=== PATIENT | female | born 1930 | race Caucasian/White ===

== ENCOUNTER → 2017-08-09 | Outpatient (CLI) | payer MEDICARE, OTHER ==
[2017-08-09 13:01] LABS: MEAN CORPUSCULAR HEMOGLOBIN 29.2 pg (27.0-33.0); MEAN CORPUSCULAR HGB CONC 32.4 g/dl (32.0-36.5); MEAN CORPUSCULAR VOLUME 90.2 fl (80.0-96.0); RED CELL DISTRIBUTION WIDTH 13.5 % (11.5-14.5); WHITE BLOOD COUNT 3.6 10^3/uL (4.0-10.0)
[2017-08-09 13:56] LABS: ALBUMIN 3.6 GM/DL (3.2-5.2); ALBUMIN/GLOBULIN RATIO 1.38 (1.00-1.93); ALKALINE PHOSPHATASE 59 U/L (45-117); ALT/SGPT 20 U/L (12-78); ANION GAP 7 MEQ/L (8-16); AST/SGOT 13 U/L (15-37); BILIRUBIN,TOTAL 0.4 MG/DL (0.2-1.0); BLOOD UREA NITROGEN 18 MG/DL (7-18); CALCIUM LEVEL 8.9 MG/DL (8.8-10.2); CARBON DIOXIDE LEVEL 30 MEQ/L (21-32); CHLORIDE LEVEL 105 MEQ/L (98-107); CHOLESTEROL LEVEL 179 MG/DL (<200); CREATININE FOR GFR 0.58 MG/DL (0.55-1.02); FREE T4 1.07 NG/DL (0.76-1.46); GLOMERULAR FILTRATION RATE > 60.0 (>32); GLUCOSE, FASTING 83 MG/DL (83-110); POTASSIUM SERUM 4.1 MEQ/L (3.5-5.1); SODIUM LEVEL 142 MEQ/L (136-145); TOTAL PROTEIN 6.2 GM/DL (6.4-8.2); TRIGLYCERIDES LEVEL 88 MG/DL (<150)
== END ==
LOC: M WUC 08:42
PROVIDERS: ATTEND Family Medicine
DX: M16.12 Unilateral primary osteoarthritis, left hip (principal); E78.2 Mixed hyperlipidemia; E03.9 Hypothyroidism, unspecified

== ENCOUNTER → 2018-01-03 | Outpatient (CLI) | payer MEDICARE, OTHER ==
[2018-01-03 12:11] LABS: HEMATOCRIT 42.5 % (36.0-47.0); HEMOGLOBIN 13.7 g/dl (12.0-16.0); MEAN CORPUSCULAR HEMOGLOBIN 29.1 pg (27.0-33.0); MEAN CORPUSCULAR HGB CONC 32.2 g/dl (32.0-36.5); MEAN CORPUSCULAR VOLUME 90.2 fl (80.0-96.0); PLATELET COUNT, AUTOMATED 173 10^3/uL (150-450); RED BLOOD COUNT 4.71 10^6/uL (4.00-5.40); RED CELL DISTRIBUTION WIDTH 13.2 % (11.5-14.5); WHITE BLOOD COUNT 3.4 10^3/uL (4.0-10.0)
[2018-01-03 12:24] LABS: ALBUMIN 3.6 GM/DL (3.2-5.2); ALBUMIN/GLOBULIN RATIO 1.33 (1.00-1.93); ALKALINE PHOSPHATASE 61 U/L (45-117); ALT/SGPT 17 U/L (12-78); ANION GAP 7 MEQ/L (8-16); AST/SGOT 14 U/L (7-37); BILIRUBIN,TOTAL 0.4 MG/DL (0.2-1.0); BLOOD UREA NITROGEN 13 MG/DL (7-18); CALCIUM LEVEL 8.5 MG/DL (8.8-10.2); CARBON DIOXIDE LEVEL 29 MEQ/L (21-32); CHLORIDE LEVEL 107 MEQ/L (98-107); CHOLESTEROL LEVEL 166 MG/DL (<200); CHOLESTEROL RISK RATIO 2.634 (<5); CREATININE FOR GFR 0.58 MG/DL (0.55-1.30); FREE T4 1.04 NG/DL (0.76-1.46); GLOMERULAR FILTRATION RATE > 60.0 (>32); GLUCOSE, FASTING 88 MG/DL (70-100); HDL CHOLESTEROL 63 MG/DL (>40); LDL CHOLESTEROL 85.2 MG/DL (<100); NON-HDL-C 103 MG/DL; POTASSIUM SERUM 4.1 MEQ/L (3.5-5.1); SODIUM LEVEL 143 MEQ/L (136-145); TOTAL PROTEIN 6.3 GM/DL (6.4-8.2); TRIGLYCERIDES LEVEL 89 MG/DL (<150)
== END ==
LOC: M WUC 08:30
DX: M16.12 Unilateral primary osteoarthritis, left hip (principal); F41.1 Generalized anxiety disorder; E78.2 Mixed hyperlipidemia
CPT/HCPCS: 84443

== ENCOUNTER → 2018-01-11 | Outpatient (CLI) | payer MEDICARE, OTHER | LOC: M WHC 11:25 | DX: Z12.31 Encounter for screening mammogram for malignant neoplasm of breast (principal) | CPT/HCPCS: 77067 ==

== ENCOUNTER → 2018-03-03 | Outpatient (CLI) | payer MEDICARE, OTHER | LOC: M RAD 10:04 | DX: M54.5 Low back pain (principal) | CPT/HCPCS: 72148 ==

== ENCOUNTER → 2018-08-03 | Outpatient (CLI) | payer MEDICARE, OTHER ==
[2018-08-03 08:48] LABS: EOS # 0.2 10^3/uL (0.0-0.50); EOS % 4.1 % (0.0-3.0); HEMATOCRIT 40.9 % (36.0-47.0); HEMOGLOBIN 13.4 g/dl (12.0-15.5); IMMATURE GRANULOCYTE % 0.2 % (0-3.0); LYMPH # 0.7 10^3/uL (1.5-4.5); LYMPH % 17.5 % (24.0-44.0); MEAN CORPUSCULAR HEMOGLOBIN 29.8 pg (27.0-33.0); MEAN CORPUSCULAR HGB CONC 32.8 g/dl (32.0-36.5); MEAN CORPUSCULAR VOLUME 90.9 fl (80.0-96.0); MONO # 0.3 10^3/uL (0.0-0.8); MONO % 8.3 % (0.0-5.0); NEUTROPHILS # 2.8 10^3/uL (1.8-7.7); NEUTROPHILS % 68.9 % (36.0-66.0); PLATELET COUNT, AUTOMATED 197 10^3/uL (150-450); RED CELL DISTRIBUTION WIDTH 13.8 % (11.5-14.5); WHITE BLOOD COUNT 4.1 10^3/uL (4.0-10.0)
[2018-08-03 09:23] LABS: ALBUMIN 3.5 GM/DL (3.2-5.2); ALBUMIN/GLOBULIN RATIO 1.35 (1.00-1.93); ALKALINE PHOSPHATASE 59 U/L (45-117); ALT/SGPT 18 U/L (12-78); ANION GAP 7 MEQ/L (8-16); AST/SGOT 14 U/L (7-37); BILIRUBIN,TOTAL 0.5 MG/DL (0.2-1.0); BLOOD UREA NITROGEN 14 MG/DL (7-18); CALCIUM LEVEL 8.5 MG/DL (8.8-10.2); CARBON DIOXIDE LEVEL 31 MEQ/L (21-32); CHLORIDE LEVEL 107 MEQ/L (98-107); CHOLESTEROL LEVEL 173 MG/DL (<200); CHOLESTEROL RISK RATIO 2.544 (<5); CREATININE FOR GFR 0.61 MG/DL (0.55-1.30); FREE T4 0.89 NG/DL (0.76-1.46); GLOMERULAR FILTRATION RATE > 60.0 (>32); GLUCOSE, FASTING 85 MG/DL (70-100); HDL CHOLESTEROL 68 MG/DL (>40); LDL CHOLESTEROL 91 MG/DL (<100); NON-HDL-C 105 MG/DL; POTASSIUM SERUM 4.3 MEQ/L (3.5-5.1); SODIUM LEVEL 145 MEQ/L (136-145); TOTAL PROTEIN 6.1 GM/DL (6.4-8.2); TRIGLYCERIDES LEVEL 72 MG/DL (<150)
[2018-08-03 11:57] LABS: TOTAL 25(OH) VITAMIN D 48.8 NG/ML (30.0-100.0)
== END ==
LOC: M WUC 08:16
DX: E78.2 Mixed hyperlipidemia (principal); E03.9 Hypothyroidism, unspecified; E55.9 Vitamin D deficiency, unspecified
CPT/HCPCS: 84443

== ENCOUNTER → 2018-09-18 | Outpatient (CLI) | payer MEDICARE, OTHER ==
[2018-09-18 13:03] LABS: THYROID STIMULATING HORMONE 0.865 uIU/ML (0.358-3.740)
[2018-09-18 13:03] LABS: FREE T4 1.25 NG/DL (0.76-1.46)
== END ==
LOC: M WUC 08:30
DX: E03.9 Hypothyroidism, unspecified (principal)
CPT/HCPCS: 84443

== ENCOUNTER 2018-10-17 13:12 | Emergency (ER) | payer MEDICARE, OTHER ==
[2018-10-17] MEDS: ACETAMINOPH W/CODEINE #3 TAB UD PO (14:11)
== END 2018-10-17 14:14 | disposition home or self-care (01) ==
LOC: M ED 13:12
DX: S42.124A Nondisplaced fracture of acromial process, right shoulder, initial encounter for closed fracture (principal); X50.9XXA Other and unspecified overexertion or strenuous movements or postures, initial encounter; Y92.099 Unspecified place in other non-institutional residence as the place of occurrence of the external cause; Y93.E8 Activity, other personal hygiene; Y99.9 Unspecified external cause status; Z87.891 Personal history of nicotine dependence; Z79.899 Other long term (current) drug therapy; Z91.89 Other specified personal risk factors, not elsewhere classified; Z88.2 Allergy status to sulfonamides; Z88.1 Allergy status to other antibiotic agents
CPT/HCPCS: 73030

== ENCOUNTER 2019-02-10 19:11 | Emergency (ER) | payer OTHER, MEDICARE ==
[~2019-02-10] VITALS: Ht 149.9 cm; Wt 52.7 kg
[~2019-02-10 19:11] MED LIST: BONI1TAB; IBAN150T6; IBUPOTC; LEVO88TA3; PARO30TA3; PRAV80TA2; REFR0.5D8; TYLETAB14 PO
[2019-02-10 20:09] LABS: BASO # 0.1 10^3/uL (0.0-0.2); BASO % 0.7 % (0.0-1.0); EOS # 0.2 10^3/uL (0.0-0.50); EOS % 1.8 % (0.0-3.0); HEMATOCRIT 41.5 % (36.0-47.0); HEMOGLOBIN 13.7 g/dl (12.0-15.5); LYMPH # 0.9 10^3/uL (1.5-4.5); LYMPH % 11.3 % (24.0-44.0); MEAN CORPUSCULAR HEMOGLOBIN 28.5 pg (27.0-33.0); MEAN CORPUSCULAR VOLUME 86.5 fl (80.0-96.0); MONO # 0.6 10^3/uL (0.0-0.8); MONO % 7.3 % (0.0-5.0); NEUTROPHILS # 6.3 10^3/uL (1.8-7.7); NEUTROPHILS % 77.3 % (36.0-66.0); PLATELET COUNT, AUTOMATED 242 10^3/uL (150-450); WHITE BLOOD COUNT 8.2 10^3/uL (4.0-10.0)
[2019-02-10] MEDS: MORPHINE 2 MG/ML 1ML SYRINGE (J2270) IV PRN ×2 (20:09→20:37)
[2019-02-10 20:20] LABS: PARTIAL THROMBOPLASTIN TIME 26.4 SECONDS (25.4-37.6); PROTHROMBIN TIME 13.3 SECONDS (12.1-14.4)
[2019-02-10 20:28] LABS: BLOOD UREA NITROGEN 19 MG/DL (7-18); CALCIUM LEVEL 8.7 MG/DL (8.8-10.2); CARBON DIOXIDE LEVEL 25 MEQ/L (21-32); CHLORIDE LEVEL 108 MEQ/L (98-107); CPK CREATINE PHOSPHOKINASE 59 U/L (26-192); CREATININE FOR GFR 0.82 MG/DL (0.55-1.30); GLOMERULAR FILTRATION RATE > 60.0 (>32); GLUCOSE, FASTING 95 MG/DL (70-100); MB/CK RELATIVE INDEX 3.56 (< OR =4); POTASSIUM SERUM 3.3 MEQ/L (3.5-5.1); SODIUM LEVEL 143 MEQ/L (136-145); TROPONIN I < 0.02 NG/ML (< 0.10)
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
[2019-02-10] MEDS ORDERED: KETOROLAC 30 MG/ML VIAL (J1885) IV ONE (21:15)
[2019-02-10] MEDS ORDERED: NORC1TAB7 PO ×2 (21:59→22:12)
[2019-02-10] MEDS ORDERED: NORCO 5/325MG TABLET (BULK FOR ED) PO ONE (22:00)
[2019-02-10 22:15] VITALS: BP 178/84
--- NOTE | 2019-02-11 07:24 | ECGEPIP ---
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
--- NOTE | 2019-02-12 13:25 | ED PDOC ---
Post-Departure Follow-Up dr campuzano faxed formal report of ct chest for fu Jose Miguel Velez MD Feb 12, 2019 13:25
== END 2019-02-10 22:29 | disposition home or self-care (01) ==
LOC: M ED 19:11
DX: S22.20XA Unspecified fracture of sternum, initial encounter for closed fracture (principal); V48.1XXA Car passenger injured in noncollision transport accident in nontraffic accident, initial encounter; Y92.9 Unspecified place or not applicable; Y93.9 Activity, unspecified; Y99.9 Unspecified external cause status; I70.0 Atherosclerosis of aorta; I25.10 Atherosclerotic heart disease of native coronary artery without angina pectoris; I71.2 Thoracic aortic aneurysm, without rupture; M47.814 Spondylosis without myelopathy or radiculopathy, thoracic region; M47.816 Spondylosis without myelopathy or radiculopathy, lumbar region; M41.86 Other forms of scoliosis, lumbar region; M41.84 Other forms of scoliosis, thoracic region; M95.4 Acquired deformity of chest and rib; R93.3 Abnormal findings on diagnostic imaging of other parts of digestive tract; Z79.899 Other long term (current) drug therapy; Z88.2 Allergy status to sulfonamides; Z88.8 Allergy status to other drugs, medicaments and biological substances; Z91.89 Other specified personal risk factors, not elsewhere classified
CPT/HCPCS: 71250; 80048; 82550; 82553; 84484; 85025; 85610; 85730; 93005; 93041; 94010; 94760; 96374; 96375; 99285; J1885; J2270

== ENCOUNTER → 2019-05-30 | Outpatient (CLI) | payer MEDICARE, OTHER ==
[~2019-05-30] MED LIST changes: +NORC1TAB7 PO
== END ==
LOC: M WUC 15:30
PROVIDERS: ATTEND Nurse Practitioner Family
DX: S23.41XA Sprain of ribs, initial encounter (principal); X58.XXXA Exposure to other specified factors, initial encounter; Y92.9 Unspecified place or not applicable; Y93.9 Activity, unspecified; Y99.9 Unspecified external cause status

== ENCOUNTER 2019-06-14 13:47 | Emergency (ER) | payer MEDICARE, OTHER ==
[~2019-06-14] VITALS: Ht 149.9 cm; Wt 51.4 kg
[~2019-06-14 13:47] MED LIST changes: -BONI1TAB; +BONI1TAB PO; -LEVO88TA3; +LEVO88TA3 PO; -PARO30TA3; +PARO30TA3 PO; -PRAV80TA2; +PRAV80TA2 PO; -REFR0.5D8; +REFR0.5D8 OU
[2019-06-14] MEDS ORDERED: OYST500T12 PO (13:52)
[2019-06-14 15:20] LABS: BASO # 0.1 10^3/uL (0.0-0.2); BASO % 0.6 % (0.0-1.0); EOS # 0.1 10^3/uL (0.0-0.50); EOS % 1.4 % (0.0-3.0); HEMATOCRIT 40.9 % (36.0-47.0); HEMOGLOBIN 13.5 g/dl (12.0-15.5); LYMPH # 0.4 10^3/uL (1.5-4.5); LYMPH % 4.9 % (24.0-44.0); MEAN CORPUSCULAR HEMOGLOBIN 29.5 pg (27.0-33.0); MEAN CORPUSCULAR VOLUME 89.3 fl (80.0-96.0); MONO # 0.6 10^3/uL (0.0-0.8); MONO % 6.6 % (0.0-5.0); NEUTROPHILS # 7.6 10^3/uL (1.8-7.7); NEUTROPHILS % 86.3 % (36.0-66.0); PLATELET COUNT, AUTOMATED 230 10^3/uL (150-450); RED BLOOD COUNT 4.58 10^6/uL (4.00-5.40); WHITE BLOOD COUNT 8.8 10^3/uL (4.0-10.0)
[2019-06-14 15:33] LABS: INR 1.03; PROTHROMBIN TIME 13.2 SECONDS (11.8-14.0)
[2019-06-14 15:34] LABS: PARTIAL THROMBOPLASTIN TIME 26.5 SECONDS (25.0-38.4)
[2019-06-14 15:47] LABS: BLOOD UREA NITROGEN 22 MG/DL (7-18); CARBON DIOXIDE LEVEL 29 MEQ/L (21-32); CHLORIDE LEVEL 105 MEQ/L (98-107); CREATININE FOR GFR 0.59 MG/DL (0.55-1.30); GLOMERULAR FILTRATION RATE > 60.0 (>32); GLUCOSE, FASTING 79 MG/DL (70-100); POTASSIUM SERUM 3.7 MEQ/L (3.5-5.1); SODIUM LEVEL 140 MEQ/L (136-145)
--- NOTE | 2019-06-14 16:33 | REP ---
HISTORY: Pain and swelling. TECHNIQUE: Multiple ultrasonographic images of the deep venous structures of the left thigh were obtained from the common femoral vein to the popliteal vein along with Doppler interrogation and color flow Doppler images. FINDINGS: There is no abnormal echogenic material seen within any of the visualized deep venous structures that would suggest acute thrombosis. Coaptation is unremarkable throughout. Doppler interrogation shows an expected response to respiratory variability and augmentation. The color flow images show what appears to be a normal vascular pattern throughout. IMPRESSION: There is no ultrasonographic evidence of deep venous thrombosis involving any of the visualized deep venous structures of the left thigh, as described above. Electronically Signed by Jairo Alvarez DO 06/14/2019 05:59 P
[2019-06-14 16:55] VITALS: BP 152/84
== END 2019-06-14 17:16 | disposition home or self-care (01) ==
LOC: M ED 13:47
DX: R60.0 Localized edema (principal); M85.80 Other specified disorders of bone density and structure, unspecified site; E03.9 Hypothyroidism, unspecified; Z79.899 Other long term (current) drug therapy; Z79.01 Long term (current) use of anticoagulants; Z88.2 Allergy status to sulfonamides; Z91.89 Other specified personal risk factors, not elsewhere classified; Z88.8 Allergy status to other drugs, medicaments and biological substances

== ENCOUNTER 2019-06-15 18:55 | Inpatient (IN) | payer MEDICARE, OTHER ==
[~2019-06-15] VITALS: Ht 149.9 cm; Wt 60.7 kg
[~2019-06-15 18:55] MED LIST changes: +OYST500T12 PO
[2019-06-15] MEDS: PARoxetine 10MG TABLET PO SCH (21:00)
[2019-06-15 21:27] LABS: HEMATOCRIT 38.8 % (36.0-47.0); HEMOGLOBIN 12.8 g/dl (12.0-15.5); MEAN CORPUSCULAR HEMOGLOBIN 28.5 pg (27.0-33.0); MEAN CORPUSCULAR VOLUME 86.4 fl (80.0-96.0); PLATELET COUNT, AUTOMATED 244 10^3/uL (150-450); RED BLOOD COUNT 4.49 10^6/uL (4.00-5.40); WHITE BLOOD COUNT 17.3 10^3/uL (4.0-10.0)
[2019-06-15 21:46] LABS: ERYTHROCYTE SEDIMENTATION RATE 7 mm/hr (0-42)
[2019-06-15 21:50] LABS: C REACTIVE PROTEIN QUANTITATIV 2.8 MG/DL (0.00-0.30); CALCIUM LEVEL 9.9 MG/DL (8.8-10.2); CREATININE FOR GFR 1.13 MG/DL (0.55-1.30); GLOMERULAR FILTRATION RATE 48.5 (>32); POTASSIUM SERUM 3.8 MEQ/L (3.5-5.1)
[2019-06-15] MEDS ORDERED: NS 1,000 ML IV ONE (22:30)
[2019-06-15 22:52] LABS: ALBUMIN 3.8 GM/DL (3.2-5.2); BILIRUBIN,DIRECT 0.2 MG/DL (0.0-0.2); BILIRUBIN,TOTAL 0.8 MG/DL (0.2-1.0)
[2019-06-15 23:25] LABS: INR 1.17; PROTHROMBIN TIME 14.6 SECONDS (11.8-14.0)
[2019-06-15 23:26] LABS: PARTIAL THROMBOPLASTIN TIME 26.8 SECONDS (25.0-38.4)
[2019-06-16] MEDS ORDERED: cefTRIAXone SOD 2 GM in D5W MINI-BAG PLUS 50 ML IV ONE ×2
[2019-06-16] MEDS ORDERED: NS IV ONE ×2
[2019-06-16] MEDS ORDERED: DILUENT IV ONE ×2
--- NOTE | 2019-06-16 00:31 | HPEPDOC ---
[facility] [place] Medical History & Physical Date of Admission Jun 16, 2019 Date of Service: Jun 16, 2019 Primary Care Physician: Jeff Nieves MD Attending Physician: CLIFF HEBERT MD History and Physical Time of service 1:55 AM CHIEF COMPLAINT: Dog bite HISTORY OF PRESENT ILLNESS: Ms. Linton is an 88-year-old female who initially presented to the hospital yesterday with left lower extremity swelling. She had a duplex that was neg for DVT is given a compression stocking and sent home. Today she came in because she developed worsening redness, warmth and discoloration of the lower extremity. She denies having fevers, denies having chills, denies having vomiting, denies having chest pain, denies having dyspnea. She had transient nausea. Per discussion with the ED for provider today she has leukocytosis, which was not there yesterday. The x-ray of the lower extremity was negative. She was given 1.5L of IV fluids and Rocephin. REVIEW OF SYSTEMS: 12 point review of systems negative except as listed in HPI PAST MEDICAL / SURGICAL HISTORY: 1. Hypothyroidism 2. Osteoporosis 3. COPD 4. Diverticulosis. 5. Anxiety/generalized anxiety disorder 6. Vitamin D deficiency. 7. Arthritis. 8. Status post cataract surgery. 9. Status post appendectomy SOCIAL HISTORY: Former smoker FAMILY HISTORY: Renal cancer. Stroke Coronary artery disease. Diabetes ALLERGIES: Please see below. HOME MEDICATIONS: Please see below. PHYSICAL EXAMINATION: VITAL SIGNS: See below GENERAL APPEARANCE: Well-nourished, well-developed, not in apparent distress. Does not appear toxic HEENT: Normocephalic, atraumatic. Mucous members moist and pink CARDIOVASCULAR: Regular rate and rhythm. No murmurs, rubs or gallops. Radial pulses are intact. Posterior tibial pulses difficult to palpate in left lower extremity LUNGS: Fair to auscultation bilaterally on room air ABDOMEN: Positive bowel sounds, soft and nontender on palpation MUSCULOSKELETAL: Range of motion intact in all 4 extremities. INTEGUMENT: Left leg is purplish in color, and warm to touch. There is no thickening of the subcutaneous tissue or weeping of the skin. She does have toenail fungus bilaterally. NEUROLOGICAL: Cranial 2-12 are grossly intact. Speech is not dysarthric PSYCHIATRIC: Alert and oriented to person, place and time, able to understand and follow commands LABORATORY DATA: See below. IMAGING: Vascular ultrasound Jun 14 "IMPRESSION: There is no ultrasonographic evidence of deep venous thrombosis involving any of the visualized deep venous structures of the left thigh, as described above." MICROBIOLOGY: Please see below. ASSESSMENT: . Ms. Linton is an 88-year-old female with a past medical history of osteoporosis, hypothyroidism, COPD, and anxiety who will be admitted for evaluation of left lower extremity swelling, possibly due to cellulitis PLAN: 1. Possible Sepsis secondary to cellulitis The left leg's appearance is atypical for cellulitis as the skin is purple and leg is swollen from the toes up to the hip and not tender on palpation. The only predisposing factor she has for cellulitis is tone nail fungus SIRS criteria include HR >90 / WBC >12 Lactic acid > 3.2 X-ray and duplex of the left lower extremity-ray were unremarkable ESR within normal limits, but CRP is elevated -ALT-70 Score to diagnose LE Cellulitis = 7 = greater than 82.2% likelihood of to cellulitis. Therefore appropriate to treat Plan: admit to PCU / Sepsis protocol with repeat lactic acid / c/w IVF /f/u blood cx, / IV Clindamycin /fall precautions / elevate leg / daytime team can consider vascular surgery consult to determine if the patient has another vascular process contributing to the lower extremities discoloration and swelling 2 CLARI -current Cr 1,13 -baseline 0.59 Plan: Is/Os, daily weights / f/u ulytes for FENa or FEUrea, renal US, IVF 3. Onychomycosis Plan: no ciclopirox on formulary / daytime team to consider podiatry consult 5 Hypothyroidism Plan: Continue home meds 6. Osteoporosis Plan: Continue home meds 7. COPD Stable Plan: Continue home meds 8. Anxiety/generalized anxiety disorder Plan: Continue home meds DVT prophylaxis with Heparin Disposition pending clinical course Vital Signs Vital Signs Date Time Temp Pulse Resp B/P (MAP) Pulse Ox O2 Delivery O2 Flow Rate FiO2 06/15/19 21:05 06/15/19 18:56 96.0 91 14 99 Room Air Laboratory Data Labs 24H Laboratory Tests 2 06/15/19 21:16: Nucleated Red Blood Cells % (auto) 0.0, Erythrocyte Sedimentation Rate 7, Anion Gap 10, Glomerular Filtration Rate 48.5, Calcium Level 9.9, Aspartate Amino Transf (AST/SGOT) 20, Alanine Aminotransferase (ALT/SGPT) 17, Alkaline Phosphatase 126H, Total Bilirubin 0.8, Direct Bilirubin 0.2, C-Reactive Protein, Quantitative 2.80H, Total Protein 7.0, Albumin 3.8, Albumin/Globulin Ratio 1.19 06/15/19 23:05: Prothrombin Time 14.6H, Prothromb Time International Ratio 1.17, Activated Partial Thromboplast Time 26.8, Lactic Acid Level 3.2*H CBC/BMP Laboratory Tests 06/15/19 21:16 Red Blood Count 4.49, Mean Corpuscular Volume 86.4, Mean Corpuscular Hemoglobin 28.5, Mean Corpuscular Hemoglobin Concent 33.0, Red Cell Distribution Width 13.4 Microbiology Microbiology 06/15/19 Blood Culture, Received Pending 06/15/19 Blood Culture, Received Pending Home Medications Scheduled Calcium Carbonate/Vitamin D3 (Oyster Shell 500-Vit D3 200 Tb) 1 Each Tablet, 1 TAB PO DAILY Ibandronate Sodium (Boniva) 150 Mg Tab, 150 MG PO QMONTH LAST DAY OF THE MONTH Levothyroxine Sodium (Levothyroxine Sodium) 88 Mcg Tab, 88 MCG PO DAILY Paroxetine HCl (Paroxetine) 30 Mg Tab, 30 MG PO DAILY Pravastatin Sodium (Pravastatin Sodium) 80 Mg Tab, 80 MG PO DAILY Scheduled PRN Carboxymethylcellulose Sodium (Refresh Tears) 0.5 % José, 1 DROP OU QID PRN for DRY EYES Mineral Oil/Petrolatum,White (Refresh Lacri-Lube Ointment) 3.5 Gm Oint...g., 1 APLCT OU QHS PRN for DRY EYES Naproxen Sodium (Aleve) 220 Mg Capsule, 220 MG PO DAILY PRN for PAIN Allergies Coded Allergies: Sulfa (Sulfonamide Antibiotics) (Verified Allergy, Intermediate, 02/10/19) sulfamethoxazole (Verified Allergy, Intermediate, 02/10/19) trimethoprim (Verified Allergy, Intermediate, 02/10/19) adhesive (Verified Allergy, Unknown, BANDAIDS-REDNESS OF SKIN, 02/10/19) A-FIB/CHADSVASC A-FIB History Current/History of A-Fib/PAF?: No Current PO Anticoag Therapy: No CLIFF HEBERT MD Jun 16, 2019 00:31
[2019-06-16] MEDS: NS 1,000 ML IV SCH ×2 (00:40→16:27)
[2019-06-16] MEDS ORDERED: NAPR220C14 PO (01:04)
[2019-06-16] MEDS ORDERED: LACROIN OU (01:06)
[2019-06-16] MEDS ORDERED: CLINDAMYCIN 600 MG in APPROPRIATE DILUENT 1 EA IV SCH (02:00)
--- NOTE | 2019-06-16 02:14 | REPVR ---
EXAM: US Retroperitoneal Limited, Kidneys EXAM DATE/TIME: 06/16/2019 12:56 AM CLINICAL HISTORY: 88 years old, female; Abnormal kidney function lab tests. TECHNIQUE: Imaging protocol: Real-time ultrasound of the retroperitoneum with image documentation. Examination was focused on the kidneys. COMPARISON: No relevant prior studies available. FINDINGS: Right kidney: Unremarkable. There is no renal cortical thinning. The renal cortical echogenicity is within normal limits. No renal lesion is seen. There is no hydronephrosis. No obvious stones are seen in the renal collecting system. The right kidney measures 9.8 cm x 3.4 cm x 3.8 cm. Left kidney: The left kidney was not well visualized secondary to bowel gas. There is no renal cortical thinning. The renal cortical echogenicity is within normal limits. No renal lesion is seen. There is no hydronephrosis. No obvious stones are seen in the renal collecting system. The left kidney measures 9.5 cm x 4 cm x 4.3 cm. Bladder: No ureteral jets were seen in the urinary bladder. IMPRESSION: No acute findings. Electronically signed by: Hector Sy On 06/16/2019 02:13:57 AM
[2019-06-16 08:48] LABS: BASO % 0.3 % (0.0-1.0); EOS % 0.3 % (0.0-3.0); HEMATOCRIT 32.7 % (36.0-47.0); LYMPH # 0.4 10^3/uL (1.5-4.5); LYMPH % 3.8 % (24.0-44.0); MEAN CORPUSCULAR HEMOGLOBIN 29.4 pg (27.0-33.0); MEAN CORPUSCULAR HGB CONC 32.7 g/dl (32.0-36.5); MEAN CORPUSCULAR VOLUME 89.8 fl (80.0-96.0); MONO # 0.7 10^3/uL (0.0-0.8); MONO % 5.9 % (0.0-5.0); NEUTROPHILS # 10.2 10^3/uL (1.8-7.7); NEUTROPHILS % 89.4 % (36.0-66.0); PLATELET COUNT, AUTOMATED 158 10^3/uL (150-450); RED BLOOD COUNT 3.64 10^6/uL (4.00-5.40); WHITE BLOOD COUNT 11.4 10^3/uL (4.0-10.0)
[2019-06-16 08:56] LABS: HEMOGLOBIN 10.7 g/dl (12.0-15.5)
[2019-06-16 09:18] LABS: CALCIUM LEVEL 8.4 MG/DL (8.8-10.2); CREATININE FOR GFR 1.03 MG/DL (0.55-1.30)
[2019-06-16] MEDS: HEPARIN SOD (PORCINE) 5000 UNITS/ML VIAL SC SCH ×2 (10:17→20:32)
--- NOTE | 2019-06-16 10:36 | REP ---
LEFT KNEE, COMPLETE: 06/15/2019. Clinical history: Swelling and pain. Findings: No prior study. [place] view shows no patellar subluxation or dislocation. No visible fracture of the patella on these images. No definite joint effusion. Distal femur and its condyles intact. Proximal tibia and fibula without fracture or focal lesion. There is no definite joint space narrowing, loose body or osteochondral defect. Bones are demineralized. Impression: 1. Some minor degenerative changes and demineralization but no fracture, avulsion, subluxation, loose body or definite joint effusion. Electronically Signed by Yony Prince MD 06/16/2019 09:46 P
--- NOTE | 2019-06-16 10:37 | REP ---
AP PELVIS WITH LEFT HIP: 06/15/2019. Clinical history: Swelling and pain. Comparison: X-ray 02/26/2016. Findings: AP pelvis shows the pelvic ring intact. Sclerosis at the symphysis pubis with spurring but no fracture. Pubic rami, acetabuli and ischia intact. SI joints fairly symmetric. 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 This is an anatomic variation. The hips show degenerative changes left greater than right with central narrowing of the left hip joint space and marginal osteophytes left greater than right. Left hip: Hip joint space narrowing with rim osteophytes acetabular roof and femoral head. No evidence of AVN or fracture. There is a small curvilinear calcific density above the greater trochanter corresponding to soft tissue calcification seen on the radiograph 3 years ago. No evidence of an acute fracture is acetabulum, pubic rami and iliac bone grossly intact. Bones are demineralized. Impression: 1. Bilateral hip osteoarthritis, left greater than right with central joint space narrowing and [id number] appearance with marginal osteophytes acetabular roof and femoral head rim osteophyte. 2. Degenerative changes lower lumbar spine and symphysis pubis and mild at the right SI joint. 3. Curvilinear soft tissue calcification above the greater trochanter as seen on the previous study, 2016. Electronically Signed by Yony Prince MD 06/16/2019 09:47 P
[2019-06-16] MEDS: PRAVASTATIN 20 MG TAB PO SCH (10:49)
[2019-06-16] MEDS: CALCIUM/VITAMIN D 500 MG TAB PO SCH (10:49)
[2019-06-16] MEDS: LEVOTHYROXINE 88MCG TABLET (0.088 MG) PO SCH (10:50)
--- NOTE | 2019-06-16 14:30 | IPN ---
DATE: 06/16/2019 Mary is seen in the ER in interim bed. She was admitted with presumed cellulitis left lower extremity. It is an typical presentation for this. She had swelling of the entire left leg from groin to foot for which she came to the ER on 06/14/2019. She had an ultrasound negative for deep vein thrombosis (DVT). She returned with increased swelling. She says the foot feels cool and tingles a bit. She did not have any fevers, but she did have a leukocytosis and an elevated lactate level. She was put on IV antibiotics. White count has improved and the lactate has normalized. The leg is a little less swollen, but still the entire leg is involved. PHYSICAL EXAMINATION: Vital signs stable. Afebrile. She is alert, conversant and in no distress. Lungs clear. Heart regular rhythm. Abdomen soft. No lymphadenopathy in the inguinal region. The left lower extremity has 2+ pitting edema from the groin to the foot. The foot is cool compared to the right foot. There was a palpable pulse. It is dusky, not significantly erythematous. LABS: Creatinine is down to 1.0 (baseline 0.6). White count is 11.4. IMPRESSION: 1. Presumed cellulitis left lower extremity. This is an atypical presentation for this. She has responded to the antibiotic. I will switch her from clindamycin to Ceftaroline (clindamycin has limited efficacy against methicillin-resistant Staphylococcus aureus (MRSA) in this facility with approximately 50% susceptibility). 2. Swelling left lower extremity. Atypical presentation for cellulitis. The case was discussed with Dr. Metzger who will see the patient in consultation for vascular evaluation. Elevation of the foot advised. Continue deep vein thrombosis (DVT) prophylaxis. 3. Acute kidney injury. Renal function marginally improved. Renal ultrasound showed no obstruction. 4. Hyperlipidemia. Continue on her current regimen.
[2019-06-16 15:30] VITALS: BP 135/69
[2019-06-16] MEDS: CEFTAROLINE FOSAMIL 300 MG in D5W 50 ML IV SCH (16:27)
[2019-06-16 20:00] VITALS: BP 102/58
[2019-06-16] MEDS: PARoxetine 10MG TABLET PO SCH (20:32)
[2019-06-17] VITALS (7 sets, daily range): BP systolic 122–145; BP diastolic 61–81
[2019-06-17] MEDS: CEFTAROLINE FOSAMIL 300 MG in D5W 50 ML IV SCH (01:09)
[2019-06-17 06:15] LABS: HEMATOCRIT 29.9 % (36.0-47.0); HEMOGLOBIN 9.7 g/dl (12.0-15.5); MEAN CORPUSCULAR HEMOGLOBIN 29.3 pg (27.0-33.0); MEAN CORPUSCULAR HGB CONC 32.4 g/dl (32.0-36.5); MEAN CORPUSCULAR VOLUME 90.3 fl (80.0-96.0); PLATELET COUNT, AUTOMATED 126 10^3/uL (150-450); RED BLOOD COUNT 3.31 10^6/uL (4.00-5.40); WHITE BLOOD COUNT 8.6 10^3/uL (4.0-10.0)
[2019-06-17 06:39] LABS: BLOOD UREA NITROGEN 34 MG/DL (7-18); CALCIUM LEVEL 8.3 MG/DL (8.8-10.2); CARBON DIOXIDE LEVEL 26 MEQ/L (21-32); CHLORIDE LEVEL 110 MEQ/L (98-107); CREATININE FOR GFR 0.68 MG/DL (0.55-1.30); GLOMERULAR FILTRATION RATE > 60.0 (>32); GLUCOSE, FASTING 107 MG/DL (70-100); POTASSIUM SERUM 3.8 MEQ/L (3.5-5.1); SODIUM LEVEL 141 MEQ/L (136-145)
--- NOTE | 2019-06-17 08:18 | CR.PDOC ---
General Date of Consultation: Jun 17, 2019 Referring Provider: Jeff Nieves MD Consultation REASON FOR CONSULTATION/CHIEF COMPLAINT: LLE swelling and discoloration, leukocytosis HISTORY OF PRESENT ILLNESS: Ms Linton is a very pleasant 88yo patient with recent ER visit 2 days ago for LLE swelling with negative venous duplex who returned to ER yesterday with worsening LLE swelling, erythema, purplish discoloration of the leg, and inability to ambulate. She denies h/o DVT, denies smoking, denies hormone replacement therapy. She says the swelling progressed fairly rapidly, and denies falls, trauma, or other injuries to the extremity. Xrays LLE neg. Elevation of the extremity improved her color, but the leg is still swollen today from toe to hip. Unfortunately her leg was not elevated this morning, but I have replaced the end of the bed on the bar and added several pillows which has already helped. D/w RN the need for consistent elevation above the level of the heart while inpatient. Since her leukocytosis has resolved, WBC 8 today, and there is no erythema/induration, I do not think this is cellulitis. Although her recent venous duplex was negative, I think based on her exam today that this is DVT until proven otherwise. Will repeat venous duplex today. Her platelet count is lower today, and I suspect this is do to thrombosis, but there is a minimal chance that this may be 2/2 heparin DVT prophylaxis. I will wait to start full anticoagulation until study is done. ALLERGIES: Please see below. HOME MEDICATIONS: Please see below. PAST MEDICAL HISTORY: 1. Arthritis 2. COPD 3. Hypothyroidism 4. Anxiety 5. Osteoporosis 6. Diverticulosis PAST SURGICAL HISTORY: 1. Appendectomy 2. Cataract surgery FAMILY HISTORY: Renal cancer, CVA, CAD, DM SOCIAL HISTORY: , denies tobacco/ETOH/illicit drug use, former smoker REVIEW OF SYSTEMS: CONSTITUTIONAL: Denies fevers/chills. +fatigue. HEENT: Denies new vision changes, +[place] CARDIOVASCULAR: Denies palpitations or CP RESPIRATORY: +SOB on exertion, denies cough GENITOURINARY: denies dysuria MUSCULOSKELETAL: +left leg pain and swelling, neg claudication GASTROINTESTINAL: +nausea now resolved, denies v/d/c SKIN: denies wounds or skin cancers NEUROLOGICAL: denies RODRIGUEZ, seizures, focal deficits PSYCHIATRIC: +anxiety, denies depression ENDOCRINE: +thyroid disease HEMATOLOGIC/LYMPHATIC: denies lymph disorder, +easy bruising ALLERGIC/IMMUNOLOGIC: denies PHYSICAL EXAMINATION: VITAL SIGNS: Please see below. GENERAL APPEARANCE: NAD, medically stable HEENT: . RESPIRATORY: . CARDIOVASCULAR: . ABDOMEN: . EXTREMITIES: LLE 3+ swelling nonpitting foot to groin, purple discoloration resolved this morning, 2+DP/PT pulses BLE and feet warm well perfused. NEUROLOGICAL: A&O, MAEE PSYCHIATRIC: pleasant and cooperative LABORATORY DATA: Please see below. ASSESSMENT/PLAN: 1. Repeat venous duplex today. Leukocytosis resolved, AF/VSS, and no skin maddox ges today consistent with cellulitis. Recent venous duplex negative, but perhaps she had calf vein DVT that was missed on initial imaging and now has proximal propagation. Full anticoagulation if DVT present, and convert to oral for outpatient treatment at least 3 months if venous duplex +DVT. Plan for repeat venous duplex in 3 months prior to stopping anticoagulation. 2. Elevation LLE above the level of the heart consistently while inpatient. The end of the bed should be elevated up on the bar, and also several pillows. Would avoid ambulation until patient's study is complete and full anticoagulation is started if +DVT. We appreciate the opportunity to participate in the care of this patient. Vital Signs/I&O Vital Signs Date Time Temp Pulse Resp B/P (MAP) Pulse Ox O2 Delivery O2 Flow Rate FiO2 06/17/19 04:00 97.7 74 14 129/69 (89) 95 06/16/19 17:10 Room Air I&O- Last 24 Hours up to 6 AM 06/17/19 06:00 Intake Total 1580 ml Output Total 200 ml Balance 1380 ml Laboratory Data Labs 24H Laboratory Tests 2 06/16/19 08:35: Immature Granulocyte % (Auto) 0.3, White Blood Count 11.4H, Red Blood Count 3.64L, Hemoglobin 10.7#L, Hematocrit 32.7L, Mean Corpuscular Volume 89.8, Mean Corpuscular Hemoglobin 29.4, Mean Corpuscular Hemoglobin Concent 32.7, Red Cell Distribution Width 13.7, Platelet Count 158, Neutrophils (%) (Auto) 89.4H, Lymphocytes (%) (Auto) 3.8L, Monocytes (%) (Auto) 5.9H, Eosinophils (%) (Auto) 0.3, Basophils (%) (Auto) 0.3, Neutrophils # (Auto) 10.2H, Lymphocytes # (Auto) 0.4L, Monocytes # (Auto) 0.7, Eosinophils # (Auto) 0.0, Basophils # (Auto) 0.0, Nucleated Red Blood Cells % (auto) 0.0, Anion Gap 8, Glomerular Filtration Rate 54.0, Blood Urea Nitrogen 32H, Creatinine 1.03, Sodium Level 142, Potassium Lev el 4.0, Chloride Level 109H, Carbon Dioxide Level 25, Calcium Level 8.4#L 06/16/19 09:29: Urine Color YELLOW, Urine Appearance CLOUDYH, Urine pH 5.0, Urine Specific [place] 1.026, Urine Protein 1+H, Urine Glucose (UA) NEGATIVE, Urine Ketones TRACEH, Urine Blood NEGATIVE, Urine Nitrite NEGATIVE, Urine Bilirubin 1+H, Urine Urobilinogen 0.2, Urine Leukocyte Esterase TRACEH, Urine WBC (Auto) 26H, Urine RBC (Auto) 8H, Urine Hyaline Casts (Auto) 15, Urine Bacteria (Auto) 1+H, Urine Squamous Epithelial Cells 6, Urine Amorphous Sediment SMALLH, Urine Granular Casts (Auto) 11, Urine Mucus (Auto) MODERATE, Urine Sperm (Auto) 06/17/19 05:41: Nucleated Red Blood Cells % (auto) 0.0, Anion Gap 5L, Glomerular Filtration Rate > 60.0, Blood Urea Nitrogen 34H, Creatinine 0.68, Sodium Level 141, Potassium Level 3.8, Chloride Level 110H, Carbon Dioxide Level 26, Calcium Level 8.3L CBC/BMP Laboratory Tests 06/16/19 08:35 Red Blood Count 3.64 L, Mean Corpuscular Volume 89.8, Mean Corpuscular Hemoglobin 29.4, Mean Corpuscular Hemoglobin Concent 32.7, Red Cell Distribution Width 13.7, Neutrophils (%) (Auto) 89.4 H, Lymphocytes (%) (Auto) 3.8 L, Monocytes (%) (Auto) 5.9 H, Eosinophils (%) (Auto) 0.3, Basophils (%) (Auto) 0.3, Neutrophils # (Auto) 10.2 H, Lymphocytes # (Auto) 0.4 L, Monocytes # (Auto) 0.7, Eosinophils # (Auto) 0.0, Basophils # (Auto) 0.0, Calcium Level 8.4 #L 06/17/19 05:41 Red Blood Count 3.31 L, Mean Corpuscular Volume 90.3, Mean Corpuscular Hemoglobin 29.3, Mean Corpuscular Hemoglobin Concent 32.4, Red Cell Distribution Width 13.7, Calcium Level 8.3 L Microbiology Microbiology 06/15/19 Blood Culture - Preliminary, Resulted No growth after 24 hours . All specim... 06/15/19 Blood Culture - Preliminary, Resulted No growth after 24 hours . All specim... 06/16/19 Urine Culture - Final, Complete Allergies Coded Allergies: Sulfa (Sulfonamide Antibiotics) (Verified Allergy, Intermediate, 02/10/19) sulfamethoxazole (Verified Allergy, Intermediate, 02/10/19) trimethoprim (Verified Allergy, Intermediate, 02/10/19) adhesive (Verified Allergy, Unknown, BANDAIDS-REDNESS OF SKIN, 02/10/19) Home Medications Scheduled Calcium Carbonate/Vitamin D3 (Oyster Shell 500-Vit D3 200 Tb) 1 Each Tablet, 1 TAB PO DAILY, (Reported) Ibandronate Sodium (Boniva) 150 Mg Tab, 150 MG PO QMONTH, (Reported) LAST DAY OF THE MONTH Levothyroxine Sodium (Levothyroxine Sodium) 88 Mcg Tab, 88 MCG PO DAILY, (Reported) Paroxetine HCl (Paroxetine) 30 Mg Tab, 30 MG PO DAILY, (Reported) Pravastatin Sodium (Pravastatin Sodium) 80 Mg Tab, 80 MG PO DAILY, (Reported) Scheduled PRN Carboxymethylcellulose Sodium (Refresh Tears) 0.5 % José, 1 DROP OU QID PRN for DRY EYES, (Reported) Mineral Oil/Petrolatum,White (Refresh Lacri-Lube Ointment) 3.5 Gm Oint...g., 1 APLCT OU QHS PRN for DRY EYES, (Reported) Naproxen Sodium (Aleve) 220 Mg Capsule, 220 MG PO DAILY PRN for PAIN, (Reported) PHIL ALVARADO MD Jun 17, 2019 08:18
[2019-06-17] MEDS: PRAVASTATIN 20 MG TAB PO SCH (08:33)
[2019-06-17] MEDS: LEVOTHYROXINE 88MCG TABLET (0.088 MG) PO SCH (08:33)
[2019-06-17] MEDS: CALCIUM/VITAMIN D 500 MG TAB PO SCH (08:33)
[2019-06-17] MEDS: HEPARIN SOD (PORCINE) 5000 UNITS/ML VIAL SC SCH (08:33)
[2019-06-17] MEDS: ENOXAPARIN 60 MG/0.6 ML SYR (J1650) SC SCH ×2 (11:31→21:47)
[2019-06-17] MEDS ORDERED: ASPIRIN 81 MG ENTERIC TAB PO ONE (12:00)
--- NOTE | 2019-06-17 14:38 | REP ---
LEFT LOWER EXTREMITY DOPPLER VENOUS ULTRASOUND: 06/17/2019. Comparison: 06/14/2019. Clinical history lower extremity swelling pointed toes. Pain. Findings: There has been a dramatic exchange trouble shooter the past 3 days. The common femoral vein in the groin to the tibioperoneal trunk in the popliteal fossa and proximal calf show occlusion with thrombus. There is little or no color flow at all of these levels. There is also some thrombus in the greater saphenous vein and the distal course of the profunda femoris vein. Doppler and color flow confirms thrombus and poor flow with occlusion. Impression: 1. Extensive occlusive DVT from the left common femoral vein in the groin through the tibial peroneal trunk in the proximal calf and including the profunda as well as the greater saphenous vein. This same extremity was normal 3 days ago. Electronically Signed by Yony Prince MD 06/17/2019 08:36 P
--- NOTE | 2019-06-17 14:44 | IPN ---
DATE: 06/17/2019 Mary is seen in progressive care unit (PCU). She was admitted for presumed cellulitis, seemed atypical on presentation. I consulted vascular surgery. Dr. Metzger saw her. Appreciate her input. This morning the leg was swollen, looking less cellulitic, getting more like a deep venous thrombosis (DVT). Stat ultrasound was ordered, which confirmed DVT through the entire length of common femoral vein from inguinal area to her knee. She has no shortness of breath. No past history of venous thromboembolism (VTE). PHYSICAL EXAMINATION: 127/66. Afebrile. Lungs: Clear. Heart: Regular rhythm. Abdomen: Soft. Nontender. Left lower extremity has 2+ peripheral edema. Distal pulses palpable. Foot still cool. No significant erythema. IMPRESSION: Deep venous thrombosis left lower extremity. She is placed on a therapeutic dose of Lovenox. Antibiotic has been discontinued. The leg has been elevated. Tomorrow, she could start on a direct oral anticoagulant (DOAC) if the edema is improved. If it is not, Dr. Metzger advises another day of Lovenox before discharge on a DOAC medication.
[2019-06-17] MEDS: NS 1,000 ML IV SCH (15:54)
[2019-06-17] MEDS: ACETAMINOPHEN 650MG ER TAB (TYLENOL ARTHRITIS) PO SCH (21:47)
[2019-06-17] MEDS: PARoxetine 10MG TABLET PO SCH (21:47)
[2019-06-18 04:00] VITALS: BP 130/70
[2019-06-18 05:45] LABS: HEMATOCRIT 28.4 % (36.0-47.0); MEAN CORPUSCULAR HEMOGLOBIN 28.4 pg (27.0-33.0); MEAN CORPUSCULAR HGB CONC 31.7 g/dl (32.0-36.5); MEAN CORPUSCULAR VOLUME 89.6 fl (80.0-96.0); PLATELET COUNT, AUTOMATED 143 10^3/uL (150-450); RED BLOOD COUNT 3.17 10^6/uL (4.00-5.40); WHITE BLOOD COUNT 6.3 10^3/uL (4.0-10.0)
[2019-06-18 05:54] LABS: BLOOD UREA NITROGEN 29 MG/DL (7-18); CARBON DIOXIDE LEVEL 27 MEQ/L (21-32); CHLORIDE LEVEL 111 MEQ/L (98-107); CREATININE FOR GFR 0.62 MG/DL (0.55-1.30); GLOMERULAR FILTRATION RATE > 60.0 (>32); GLUCOSE, FASTING 92 MG/DL (70-100); POTASSIUM SERUM 3.8 MEQ/L (3.5-5.1); SODIUM LEVEL 143 MEQ/L (136-145)
[2019-06-18 06:00] VITALS: BP 130/73
[2019-06-18 10:00] VITALS: BP 113/61
[2019-06-18] MEDS: ACETAMINOPHEN 650MG ER TAB (TYLENOL ARTHRITIS) PO SCH ×2 (10:19→21:00)
[2019-06-18] MEDS: CALCIUM/VITAMIN D 500 MG TAB PO SCH (10:20)
[2019-06-18] MEDS: PRAVASTATIN 20 MG TAB PO SCH (10:20)
[2019-06-18] MEDS: ASPIRIN 81 MG ENTERIC TAB PO SCH (10:20)
[2019-06-18] MEDS: LEVOTHYROXINE 88MCG TABLET (0.088 MG) PO SCH (10:20)
[2019-06-18] MEDS: ENOXAPARIN 60 MG/0.6 ML SYR (J1650) SC SCH ×2 (10:21→21:40)
--- NOTE | 2019-06-18 10:40 | IPNPDOC ---
Date Seen The patient was seen on 06/18/19. Progress Note Ms Linton is a very pleasant 88yo patient with LLE extensive DVT calf to groin and persistent swelling today after 24hrs anticoagulation. She is not yet able to ambulate, and has a lot of discomfort after getting up to the commode, which improves after getting back to bed and elevating her leg. Overall, I think she is improving a bit, and her swelling is a little better, but I do not think she is ready for discharge today. Would recommend continuing lovenox and we will see her tomorrow and re-evaluate for possible disposition. She lives by herself, and needs to be able to ambulate and move around. Hopefully after another day or two she will show significant improvement. Continue elevation of LLE above the level of the heart while in bed to help with venous return. Will follow closely. VS, I&O, 24H, Fishbone Vital Signs/I&O Vital Signs Date Time Temp Pulse Resp B/P (MAP) Pulse Ox O2 Delivery O2 Flow Rate FiO2 06/18/19 10:00 99.1 60 16 113/61 (78) 98 06/16/19 17:10 Room Air I&O- Last 24 Hours up to 6 AM 06/18/19 06:00 Intake Total 1220 ml Output Total 650 ml Balance 570 ml Laboratory Data 24H LABS Laboratory Tests 2 06/18/19 05:00: Nucleated Red Blood Cells % (auto) 0.0, Anion Gap 5L, Glomerular Filtration Rate > 60.0, Blood Urea Nitrogen 29H, Creatinine 0.62, Sodium Level 143, Potassium Level 3.8, Chloride Level 111H, Carbon Dioxide Level 27, Calcium Level 8.0L CBC/BMP Laboratory Tests 06/18/19 05:00 Red Blood Count 3.17 L, Mean Corpuscular Volume 89.6, Mean Corpuscular Hemoglobin 28.4, Mean Corpuscular Hemoglobin Concent 31.7 L, Red Cell Distribution Width 13.8, Calcium Level 8.0 L Microbiology Microbiology 06/15/19 Blood Culture - Preliminary, Resulted No Growth after 48 hours. All Specime... 06/15/19 Blood Culture - Preliminary, Resulted No Growth after 48 hours. All Specime... 06/16/19 Urine Culture - Final, Complete PHIL ALVARADO MD Jun 18, 2019 10:40
--- NOTE | 2019-06-18 10:46 | IPNPDOC ---
Subjective Date Seen The patient was seen on 06/18/19. Subjective Chief Complaint/HPI LLE DVT Events since last encounter swelling is continuing to improve. Patient admits to finnegan on LLE with weight bearing. Constitutional: Denies: Chills, Fever, Night Sweats Pulmonary: Denies: Dyspnea, Cough Cardiovascular: Denies: Chest Pain, Palpitations, Orthopnea, Paroxysmal Noc. Dyspnea, Lt Headedness Gastrointestinal: Denies: Nausea, Vomiting, Abdominal Pain, Diarrhea, Constipation Genitourinary: Denies: Dysuria, Frequency, Incontinence, Retention Objective Physical Examination General Exam: Positive: Alert, No Acute Distress Chest Exam: Positive: Clear to auscultation, Normal air movement Heart Exam: Positive: Rate Normal, Regular Rhythm, Normal S1, Normal S2; Negative: Murmurs, Rubs Abdomen Exam: Positive: Normal bowel sounds, Soft; Negative: Tenderness, Hepatospenomegaly Extremity Exam: Positive: Edema (LLE. + pain to posterior calf. + PP) Assessment /Plan Problems (1) Lower leg DVT (deep venous thromboembolism), acute Status: Acute Problem Text: Anti-coag x 1 more day then transition to DOAC. Patient will need PT for HSE. (2) Leg edema, left Status: Acute Plan/VTE VTE Prophylaxis Ordered?: Yes VS, I&O, 24H, Fishbone Vital Signs/I&O Vital Signs Date Time Temp Pulse Resp B/P (MAP) Pulse Ox O2 Delivery O2 Flow Rate FiO2 06/18/19 10:00 99.1 60 16 113/61 (78) 98 06/16/19 17:10 Room Air I&O- Last 24 Hours up to 6 AM 06/18/19 06:00 Intake Total 1220 ml Output Total 650 ml Balance 570 ml Laboratory Data 24H LABS Laboratory Tests 2 06/18/19 05:00: Nucleated Red Blood Cells % (auto) 0.0, Anion Gap 5L, Glomerular Filtration Rate > 60.0, Blood Urea Nitrogen 29H, Creatinine 0.62, Sodium Level 143, Potassium Level 3.8, Chloride Level 111H, Carbon Dioxide Level 27, Calcium Level 8.0L CBC/BMP Laboratory Tests 06/18/19 05:00 Red Blood Count 3.17 L, Mean Corpuscular Volume 89.6, Mean Corpuscular Hemoglobin 28.4, Mean Corpuscular Hemoglobin Concent 31.7 L, Red Cell Distribution Width 13.8, Calcium Level 8.0 L Microbiology Microbiology 06/15/19 Blood Culture - Preliminary, Resulted No Growth after 48 hours. All Specime... 06/15/19 Blood Culture - Preliminary, Resulted No Growth after 48 hours. All Specime... 06/16/19 Urine Culture - Final, Complete Génesis Suero [facility] Jun 18, 2019 10:46
[2019-06-18] MEDS: NS 1,000 ML IV SCH (12:30)
[2019-06-18 14:00] VITALS: BP 101/59
[2019-06-18 18:00] VITALS: BP 162/80
[2019-06-18] MEDS: ACETAMINOPHEN TAB 650MG DOSE (2X325MG) PO SCH (21:00)
[2019-06-18 21:13] VITALS: BP 155/82
[2019-06-18] MEDS: PARoxetine 10MG TABLET PO SCH (21:39)
[2019-06-19 02:17] VITALS: BP 160/74
[2019-06-19 05:44] LABS: HEMATOCRIT 27.6 % (36.0-47.0); HEMOGLOBIN 8.9 g/dl (12.0-15.5); MEAN CORPUSCULAR HEMOGLOBIN 28.7 pg (27.0-33.0); MEAN CORPUSCULAR HGB CONC 32.2 g/dl (32.0-36.5); PLATELET COUNT, AUTOMATED 152 10^3/uL (150-450); WHITE BLOOD COUNT 6.2 10^3/uL (4.0-10.0)
[2019-06-19 06:01] VITALS: BP 168/73
[2019-06-19 06:13] LABS: BLOOD UREA NITROGEN 21 MG/DL (7-18); CALCIUM LEVEL 7.6 MG/DL (8.8-10.2); CARBON DIOXIDE LEVEL 28 MEQ/L (21-32); CHLORIDE LEVEL 112 MEQ/L (98-107); CREATININE FOR GFR 0.49 MG/DL (0.55-1.30); FERRITIN 120 NG/ML (8-252); FREE T4 1.16 NG/DL (0.76-1.46); GLOMERULAR FILTRATION RATE > 60.0 (>32); GLUCOSE, FASTING 86 MG/DL (70-100); IRON (FE) 37 UG/DL (50-170); PERCENT SATURATION 18.9 % (13.2-45.0); POTASSIUM SERUM 3.8 MEQ/L (3.5-5.1); SODIUM LEVEL 144 MEQ/L (136-145); TOTAL IRON BINDING CAPACITY 196 UG/DL (250-450)
--- NOTE | 2019-06-19 07:57 | IPNPDOC ---
Subjective Date Seen The patient was seen on 06/19/19. Subjective Chief Complaint/HPI Still some leg heaviness and aching when he walks Constitutional: Denies: Chills, Fever Pulmonary: Denies: Dyspnea, Cough Cardiovascular: Denies: Chest Pain, Palpitations, Orthopnea Gastrointestinal: Denies: Nausea, Vomiting, Abdominal Pain, Diarrhea, Const ipation, Melena, Hematochezia Hematologic: Denies: Bruising, Bleeding Excessively Objective Physical Examination General Exam: Positive: Alert, No Acute Distress Chest Exam: Positive: Clear to auscultation, Normal air movement Heart Exam: Positive: Rate Normal, Regular Rhythm; Negative: Murmurs Abdomen Exam: Positive: Normal bowel sounds, Soft; Negative: Tenderness, Hepatospenomegaly Extremity Exam: Positive: Edema (LLE larger than right - no pitting, erythema or warmth. Less tender in calf) Assessment /Plan Problems (1) Lower leg DVT (deep venous thromboembolism), acute Status: Acute Problem Text: D#3 therapeutic Lovenox Plan to transition to oral anticoagulation - D/W attending Coumadin vs Eliquis/Xarelto (2) Leg edema, left Status: Acute Problem Text: improving - Plan for Support stocking as outpatient Plan/VTE VTE Prophylaxis Ordered?: Yes Plan Therapy: PT Disposition PT eval pending - may need some ST rehab VS, I&O, 24H, [facility] Vital Signs/I&O Vital Signs Date Time Temp Pulse Resp B/P (MAP) Pulse Ox O2 Delivery O2 Flow Rate FiO2 06/19/19 06:01 97.9 65 16 168/73 (104) 98 06/16/19 17:10 Room Air I&O- Last 24 Hours up to 6 AM 06/19/19 05:59 Intake Total 1040 ml Output Total 625 ml Balance 415 ml Laboratory Data 24H LABS Laboratory Tests 2 06/19/19 05:27: Reticulocyte # (auto) 67.9, Nucleated Red Blood Cells % (auto) 0.0, Percent Reticulocyte Count 2.2H, Reticulocyte Hemoglobin Equivalent 30.8, Anion Gap 4L, Glomerular Filtration Rate > 60.0, Blood Urea Nitrogen 21H, Creatinine 0.49L, Sodium Level 144, Potassium Level 3.8, Chloride Level 112H, Carbon Dioxide Level 28, Calcium Level 7.6L, Iron Level 37L, Total Iron Binding Capacity 196L, Transferrin % Saturation 18.9, Ferritin 120, Thyroid Stimulating Hormone (TSH) 1.920, Free Thyroxine 1.16 CBC/BMP Laboratory Tests 06/19/19 05:27 Red Blood Count 3.10 L, Mean Corpuscular Volume 89.0, Mean Corpuscular He moglobin 28.7, Mean Corpuscular Hemoglobin Concent 32.2, Red Cell Distribution Width 13.7, Calcium Level 7.6 L Microbiology Microbiology 06/15/19 Blood Culture - Preliminary, Resulted No Growth after 72 hours. All specime... 06/15/19 Blood Culture - Preliminary, Resulted No Growth after 72 hours. All specime... 06/16/19 Urine Culture - Final, Complete JANEY CARNEY PA-C Jun 19, 2019 07:57
--- NOTE | 2019-06-19 08:51 | IPNPDOC ---
Date Seen The patient was seen on 06/19/19. Progress Note Ms Linton is a very pleasant 88yo patient with LLE extensive DVT calf to groin and persistent LLE swelling from foot to hip today after 48hrs anticoagulation, but her leg is much softer and the swelling is starting to improve. Pulses DP/PT 2+ BLE. She is not yet able to ambulate without significant weakness, but her discomfort with getting OOB and going to the bathroom is improving. Overall, I think she is doing better, but I do not think she is ready for discharge yet today. Would recommend continuing lovenox while inpatient and we will see her tomorrow and re-evaluate for possible disposition. She lives by herself, and needs to be able to ambulate and move around safely. Physical therapy has not yet seen her but she is looking forward to working with them today. Continue elevation of LLE above the level of the heart while in bed to help with venous return. Will follow closely. VS, I&O, 24H, [place] Vital Signs/I&O Vital Signs Date Time Temp Pulse Resp B/P (MAP) Pulse Ox O2 Delivery O2 Flow Rate FiO2 06/19/19 06:01 97.9 65 16 168/73 (104) 98 06/16/19 17:10 Room Air I&O- Last 24 Hours up to 6 AM 06/19/19 06:00 Intake Total 1040 ml Output Total 625 ml Balance 415 ml Laboratory Data 24H LABS Laboratory Tests 2 06/19/19 05:27: Reticulocyte # (auto) 67.9, Nucleated Red Blood Cells % (auto) 0.0, Percent Reticulocyte Count 2.2H, Reticulocyte Hemoglobin Equivalent 30.8, Anion Gap 4L, Glomerular Filtration Rate > 60.0, Blood Urea Nitrogen 21H, Creatinine 0.49L, Sodium Level 144, Potassium Level 3.8, Chloride Level 112H, Carbon Dioxide Level 28, Calcium Level 7.6L, Iron Level 37L, Total Iron Binding Capacity 196L, Transferrin % Saturation 18.9, Ferritin 120, Thyroid Stimulating Hormone (TSH) 1.920, Free Thyroxine 1.16 CBC/BMP Laboratory Tests 06/19/19 05:27 Red Blood Count 3.10 L, Mean Corpuscular Volume 89.0, Mean Corpuscular Hemoglobin 28.7, Mean Corpuscular Hemoglobin Concent 32.2, Red Cell Distribution Width 13.7, Calcium Level 7.6 L Microbiology Microbiology 06/15/19 Blood Culture - Preliminary, Resulted No Growth after 72 hours. All specime... 06/15/19 Blood Culture - Preliminary, Resulted No Growth after 72 hours. All specime... 06/16/19 Urine Culture - Final, Complete PHIL ALVARADO MD Jun 19, 2019 08:51
[2019-06-19 08:59] LABS: VITAMIN B12 LEVEL 176 PG/ML (247-911)
[2019-06-19] MEDS: CALCIUM/VITAMIN D 500 MG TAB PO SCH (09:00)
[2019-06-19 10:00] VITALS: BP 144/65
[2019-06-19] MEDS: LEVOTHYROXINE 88MCG TABLET (0.088 MG) PO SCH (10:38)
[2019-06-19] MEDS: ENOXAPARIN 60 MG/0.6 ML SYR (J1650) SC SCH ×2 (10:38→21:29)
[2019-06-19] MEDS: ASPIRIN 81 MG ENTERIC TAB PO SCH (10:38)
[2019-06-19] MEDS: ACETAMINOPHEN TAB 650MG DOSE (2X325MG) PO SCH ×4 (10:39→21:28)
[2019-06-19] MEDS: PRAVASTATIN 20 MG TAB PO SCH (10:39)
[2019-06-19 14:00] VITALS: BP 137/67
[2019-06-19 18:00] VITALS: BP 107/56
[2019-06-19 20:41] VITALS: BP 124/72
[2019-06-19] MEDS: PARoxetine 10MG TABLET PO SCH (21:28)
[2019-06-20 02:07] VITALS: BP 159/73
[2019-06-20 05:26] VITALS: BP 164/73
[2019-06-20 06:15] LABS: HEMATOCRIT 31.3 % (36.0-47.0); HEMOGLOBIN 9.9 g/dl (12.0-15.5); MEAN CORPUSCULAR HEMOGLOBIN 29.2 pg (27.0-33.0); MEAN CORPUSCULAR HGB CONC 31.6 g/dl (32.0-36.5); MEAN CORPUSCULAR VOLUME 92.3 fl (80.0-96.0); PLATELET COUNT, AUTOMATED 172 10^3/uL (150-450); RED BLOOD COUNT 3.39 10^6/uL (4.00-5.40); WHITE BLOOD COUNT 4.7 10^3/uL (4.0-10.0)
[2019-06-20] MEDS: LEVOTHYROXINE 88MCG TABLET (0.088 MG) PO SCH (08:58)
[2019-06-20] MEDS: CALCIUM/VITAMIN D 500 MG TAB PO SCH (08:58)
[2019-06-20] MEDS: PRAVASTATIN 20 MG TAB PO SCH (08:58)
[2019-06-20] MEDS: ACETAMINOPHEN TAB 650MG DOSE (2X325MG) PO SCH ×4 (08:58→21:20)
[2019-06-20] MEDS: RIVAROXABAN 15 MG TAB (XARELTO) PO SCH ×2 (08:58→17:52)
--- NOTE | 2019-06-20 11:01 | IPNPDOC ---
Date Seen The patient was seen on 06/20/19. Progress Note Ms. Linton was seen and examined this morning. Her left lower extremity swelling is dramatically improved, but still significant overall. Today, I noted she had some posterior thigh and buttock bruising on the left. She says she did not fall, and is not sure why she has the bruising. It does not seem to be tender, but we will need to keep an eye on this. There is no obvious source, no palpable hematoma, and seems to be just soft tissue superficial bruising. Her hemoglobin and platelet counts are both slightly up today, so it does not seem she is having a large amount of active bleeding. She is getting out of bed with less difficulty, but may need another day of physical therapy before going home depending on her status and activity today. We will leave this decision to the physical therapy and primary team. As long as she is inpatient, would recommend continuing Lovenox twice a day, but if she is discharged, agree with plan to convert to oral anticoagulation. We'll follow along with primary team. VS, I&O, 24H, Dg Vital Signs/I&O Vital Signs Date Time Temp Pulse Resp B/P (MAP) Pulse Ox O2 Delivery O2 Flow Rate FiO2 06/20/19 05:26 97.8 63 16 164/73 (103) 97 06/16/19 17:10 Room Air I&O- Last 24 Hours up to 6 AM 06/20/19 06:00 Intake Total 960 ml Output Total 425 ml Balance 535 ml Laboratory Data 24H LABS Laboratory Tests 2 06/20/19 06:05: Nucleated Red Blood Cells % (auto) 0.0 CBC/BMP Laboratory Tests 06/20/19 06:05 Red Blood Count 3.39 L, Mean Corpuscular Volume 92.3, Mean Corpuscular Hemoglobin 29.2, Mean Corpuscular Hemoglobin Concent 31.6 L, Red Cell Distribution Width 13.8 Microbiology Microbiology 06/15/19 Blood Culture - Preliminary, Resulted No Growth after 72 hours. All specime... 06/15/19 Blood Culture - Preliminary, Resulted No Growth after 72 hours. All specime... 06/16/19 Urine Culture - Final, Complete PHIL ALVARADO MD Jun 20, 2019 11:01
[2019-06-20 14:00] VITALS: BP 141/61
[2019-06-20] MEDS: PARoxetine 10MG TABLET PO SCH (21:20)
[2019-06-20 22:00] VITALS: BP 133/79
[2019-06-21 06:00] VITALS: BP 132/81
--- NOTE | 2019-06-21 07:53 | IPNPDOC ---
Subjective Date Seen The patient was seen on 06/20/19 - [employer] went down while documenting therefore note was not saved Subjective Chief Complaint/HPI no new complaints - No bleeding Constitutional: Denies: Chills, Fever Pulmonary: Denies: Dyspnea, Cough Cardiovascular: Denies: Chest Pain, Palpitations Gastrointestinal: Denies: Nausea, Vomiting, Abdominal Pain, Diarrhea, Constipation Objective Physical Examination General Exam: Positive: Alert, No Acute Distress Chest Exam: Positive: Clear to auscultation, Normal air movement Heart Exam: Positive: Rate Normal, Regular Rhythm; Negative: Murmurs Abdomen Exam: Positive: Normal bowel sounds, Soft; Negative: Tenderness, Hepatospenomegaly Extremity Exam: Positive: Edema (LLE larger than right - no pitting, erythema or warmth. Less tender in calf) Assessment /Plan Problems (1) Lower leg DVT (deep venous thromboembolism), acute Status: Acute Problem Text: 06/20 - Change to Xarelto D#3 therapeutic Lovenox Plan to transition to oral anticoagulation - D/W attending Coumadin vs Eliquis/Xarelto (2) Leg edema, left Status: Acute Problem Text: improving - Plan for Support stocking as outpatient Plan/VTE VTE Prophylaxis Ordered?: Yes Plan Therapy: PT Disposition NOt safe per PT Await OT eval VS, I&O, 24H, Fishbone Vital Signs/I&O Vital Signs Date Time Temp Pulse Resp B/P (MAP) Pulse Ox O2 Delivery O2 Flow Rate FiO2 06/21/19 06:00 97.9 70 18 132/81 (98) 96 06/16/19 17:10 Room Air I&O- Last 24 Hours up to 6 AM 06/21/19 06:00 Intake Total 1280 ml Output Total 850 ml Balance 430 ml Laboratory Data Microbiology Microbiology 06/15/19 Blood Culture - Final, Complete NO GROWTH AFTER 5 DAYS 06/15/19 Blood Culture - Final, Complete NO GROWTH AFTER 5 DAYS 06/16/19 Urine Culture - Final, Complete JANEY CARNEY PA-C Jun 21, 2019 07:53
--- NOTE | 2019-06-21 08:06 | IPNPDOC ---
Subjective Date Seen The patient was seen on 06/21/19. Subjective Chief Complaint/HPI Leg still swollen and heavy. Patient does not think she is ready to go home - "i'm not sure I can manage there on my own" Constitutional: Denies: Chills, Fever Pulmonary: Denies: Dyspnea, Cough Cardiovascular: Denies: Chest Pain, Palpitations Gastrointestinal: Denies: Nausea, Vomiting, Abdominal Pain, Diarrhea, Constipation Objective Physical Examination General Exam: Positive: Alert, No Acute Distress Chest Exam: Positive: Clear to auscultation, Normal air movement Heart Exam: Positive: Rate Normal, Regular Rhythm; Negative: Murmurs Abdomen Exam: Positive: Normal bowel sounds, Soft; Negative: Tenderness, Hepatospenomegaly Extremity Exam: Positive: Edema (LLE larger than right - no pitting, erythema or warmth. Less tender in calf) Assessment /Plan Problems (1) Lower leg DVT (deep venous thromboembolism), acute Status: Acute Problem Text: 06/21 - Now on Xarelto Order thigh high support stocking to left leg 06/20 - Change to Xarelto D#3 therapeutic Lovenox Plan to transition to oral anticoagulation - D/W attending Coumadin vs Eliquis/Xarelto (2) Leg edema, left Status: Acute Problem Text: improving - Plan for Support stocking as outpatient (3) B12 deficiency Status: Acute Problem Text: B12 injection to be given today and then weekly Plan/VTE VTE Prophylaxis Ordered?: Yes Plan Therapy: PT, OT Disposition Awaiting OT eval - not done yesterday. Need PFS involvement for dipso plans since pt not comfortable with d/c home VS, I&O, 24H, Fishbone Vital Signs/I&O Vital Signs Date Time Temp Pulse Resp B/P (MAP) Pulse Ox O2 Delivery O2 Flow Rate FiO2 06/21/19 06:00 97.9 70 18 132/81 (98) 96 06/16/19 17:10 Room Air I&O- Last 24 Hours up to 6 AM 06/21/19 06:00 Intake Total 1280 ml Output Total 850 ml Balance 430 ml Laboratory Data Microbiology Microbiology 06/15/19 Blood Culture - Final, Complete NO GROWTH AFTER 5 DAYS 06/15/19 Blood Culture - Final, Complete NO GROWTH AFTER 5 DAYS 06/16/19 Urine Culture - Final, Complete JANEY CARNEY PA-C Jun 21, 2019 08:06
[2019-06-21] MEDS: RIVAROXABAN 15 MG TAB (XARELTO) PO SCH ×2 (08:58→17:45)
[2019-06-21] MEDS: CYANOCOBALAMIN 500 MCG TAB PO SCH (08:59)
[2019-06-21] MEDS ORDERED: CYANOCOBALAMIN 1,000 MCG/ML VIAL (J3420) IM SCH (09:00)
[2019-06-21] MEDS: ACETAMINOPHEN TAB 650MG DOSE (2X325MG) PO SCH ×4 (09:00→20:30)
[2019-06-21] MEDS: PRAVASTATIN 20 MG TAB PO SCH (09:01)
[2019-06-21] MEDS: LEVOTHYROXINE 88MCG TABLET (0.088 MG) PO SCH (09:02)
[2019-06-21] MEDS: CALCIUM/VITAMIN D 500 MG TAB PO SCH (09:02)
[2019-06-21 10:00] VITALS: BP 143/77
--- NOTE | 2019-06-21 12:19 | IPNPDOC ---
Date Seen The patient was seen on 06/21/19. Progress Note Ms. Linton was seen and examined this morning. Her left lower extremity swelling is stable from yesterday. Yesterday, I noted she had some posterior thigh and hip/buttock bruising on the left. She says she did not fall, and is not sure why she has the bruising. There is no obvious source, no palpable hematoma, and seems to be just soft tissue superficial bruising. The discoloration is a little bit better today, and is somewhat faded. Her hemoglobin and platelet counts are both slightly up yesterday, so unlikely she is having ongoing bleeding. It still does not seem to be tender, but we will need to keep an eye on this. She is getting out of bed with less difficulty, but still feels weak. She may need another day of physical therapy before going home depending on her status and activity today. We will leave this decision to the physical therapy and primary team. As long as she is inpatient, would recommend continuing Lovenox twice a day, but if she is discharged, agree with plan to convert to oral anticoagulation. We'll follow along with primary team. VS, I&O, 24H, Fishbone Vital Signs/I&O Vital Signs Date Time Temp Pulse Resp B/P (MAP) Pulse Ox O2 Delivery O2 Flow Rate FiO2 06/21/19 10:00 98.7 61 12 143/77 (99) 97 06/16/19 17:10 Room Air I&O- Last 24 Hours up to 6 AM 06/21/19 06:00 Intake Total 1280 ml Output Total 850 ml Balance 430 ml Laboratory Data Microbiology Microbiology 06/15/19 Blood Culture - Final, Complete NO GROWTH AFTER 5 DAYS 06/15/19 Blood Culture - Final, Complete NO GROWTH AFTER 5 DAYS 06/16/19 Urine Culture - Final, Complete PHIL ALVARADO MD Jun 21, 2019 12:19
[2019-06-21 14:00] VITALS: BP 141/75
[2019-06-21 18:00] VITALS: BP 142/75
[2019-06-21] MEDS: PARoxetine 10MG TABLET PO SCH (20:30)
[2019-06-21 20:57] VITALS: BP 133/88
[2019-06-22 02:25] VITALS: BP 142/75
[2019-06-22 06:01] VITALS: BP 148/74
[2019-06-22] MEDS: LEVOTHYROXINE 88MCG TABLET (0.088 MG) PO SCH (08:57)
[2019-06-22] MEDS: PRAVASTATIN 20 MG TAB PO SCH (08:57)
[2019-06-22] MEDS: ACETAMINOPHEN TAB 650MG DOSE (2X325MG) PO SCH ×2 (08:57→13:00)
[2019-06-22] MEDS: CYANOCOBALAMIN 500 MCG TAB PO SCH (08:58)
[2019-06-22] MEDS: RIVAROXABAN 15 MG TAB (XARELTO) PO SCH (08:58)
[2019-06-22] MEDS: CALCIUM/VITAMIN D 500 MG TAB PO SCH (08:58)
[2019-06-22] MEDS ORDERED: XARE15TA PO (09:18)
[2019-06-22] MEDS ORDERED: VITA500T40 PO (09:18)
[2019-06-22 10:00] VITALS: BP 113/78
[2019-06-22 14:00] VITALS: BP 118/76
--- NOTE | 2019-06-22 20:05 | DSES ---
DATE OF ADMISSION: 06/17/2019 DATE OF DISCHARGE: 06/22/2019 BRIEF HISTORY AND PHYSICAL: The patient is an 88-year-old patient of Dr. Nieves's who presented with left lower extremity swelling. Initial ultrasound was negative for DVT in the emergency room. She was given compression stockings and sent home but developed worsening redness, warmth and discoloration. Came to the hospital. Followup ultrasound was positive for DVT. Initially was thought she had cellulitis so she was treated with Rocephin in the emergency room. Past medical history is significant for hypothyroidism, osteoporosis, hyperlipidemia, COPD, degenerative disc disease, arthritis, anxiety. Pertinent labs on admission: White count 17, hemoglobin 12, platelets 244,000. Sodium 142, potassium 3.8, BUN 28, creatinine 1.13, lactic acid 3.2, CRP 2.8. Ultrasound showed extensive occlusive DVT in the left common femoral vein and the groin through the tibial peroneal trunk in the proximal calf and including the profunda as well as the greater saphenous vein. That DVT was not present 3 days earlier. HOSPITAL COURSE: The patient was admitted for: 1. Left lower extremity DVT. Dr. Metzger from vascular specialty was consulted, did not recommend any intervention. Recommended treatment with Lovenox which she received for the first few days of her hospitalization and then was transitioned to Xarelto which she was started on on 06/20/2019, she is taking 15 mg twice a day, tolerating this well without any bleeding. She did have some bruising on her buttock region. Denied any injury or fall there, that seems to be improving and her hemoglobin has been stable. She will require 21 days of Xarelto at 15 mg twice a day and then transition to 20 mg daily at that time. It is recommended that she wear some form of compression stockings. She is elderly and it may be hard for her to get on a tight Jobst but possibly TEDs would be possible for her to get on herself, will try to send her home with one from the hospital. 2. B12 deficiency. Blood work revealed significant B12 deficiency with a B12 level of 176. She was given a 1000 mcg B12 injection and started on oral B12. She will need followup, probably weekly B12 injections going forward for about 4 weeks and continue the oral B12. Antiparietal cell antibody should be ordered as an outpatient to determine if this pernicious anemia and to decide further treatment going forward. 3. Anemia, hemoglobin dropped slightly during the hospitalization but has then stabilized and is 9.9 at the time of discharge. 4. Hypothyroidism. She is on her chronic dose of Synthroid. 5. History of anxiety. She remained stable on Paxil. DISPOSITION: The patient is stable for discharge home. It should be noted that the vp digital marketing social media and crm did sit and talk to her on the date of discharge and spoke with her daughters who will be available to stay with her throughout the weekend as the patient was a little nervous about going home by herself. She has been cleared by physical therapy and occupational therapy and ambulated 200 feet yesterday, is using a cane, however we have communicated with the daughters and made them aware of her anxiety about going home by herself and they have assured us that they will be with her through the weekend and that she will have some support to make sure she is safe at home upon discharge. She has been issued a cane. The patient is stable for discharge home. Diet regular. Activity with a cane. MEDICATIONS: - B12 1000 mcg daily - Xarelto 15 mg twice a day for 19 more days, then she should be switched 20 mg daily - calcium plus D one tablet daily - Boniva monthly - levothyroxine 88 mcg daily - paroxetine 30 mg daily - pravastatin 80 mg daily She is not to take any nonsteroidal anti-inflammatories. She was previously on naproxen and this has been discontinued. DISCHARGE DIAGNOSES: 1. Left lower extremity DVT. 2. B12 deficiency. 3. Hypothyroidism. 4. Anxiety.
== END 2019-06-22 14:21 | disposition home health service (06) | DRG 300 ==
LOC: M ED 18:55 → M ED INP 18:56 → M PCU 06-16 17:19 → OBSVTOIN 06-17 12:04 → M MS5PR 06-18 05:12
PROVIDERS: ADMIT Internal Medicine; ATTEND Family Medicine
DX: I82.412 Acute embolism and thrombosis of left femoral vein (principal); N17.9 Acute kidney failure, unspecified; I82.812 Embolism and thrombosis of superficial veins of left lower extremity; E03.9 Hypothyroidism, unspecified; M81.0 Age-related osteoporosis without current pathological fracture; J44.9 Chronic obstructive pulmonary disease, unspecified; K57.90 Diverticulosis of intestine, part unspecified, without perforation or abscess without bleeding; E53.8 Deficiency of other specified B group vitamins; E78.5 Hyperlipidemia, unspecified; F41.1 Generalized anxiety disorder; E55.9 Vitamin D deficiency, unspecified; Z98.49 Cataract extraction status, unspecified eye; Z90.49 Acquired absence of other specified parts of digestive tract; B35.1 Tinea unguium; Z79.899 Other long term (current) drug therapy; Z88.2 Allergy status to sulfonamides; Z88.8 Allergy status to other drugs, medicaments and biological substances; Z91.048 Other nonmedicinal substance allergy status; Z87.891 Personal history of nicotine dependence

== ENCOUNTER → 2019-07-03 | Outpatient (REF) | payer MEDICARE, OTHER ==
[~2019-07-03] MED LIST changes: +LACROIN OU; +NAPR220C14 PO; +VITA500T40 PO; +XARE15TA PO
[2019-07-03 14:19] LABS: HEMATOCRIT 36.4 % (36.0-47.0); HEMOGLOBIN 11.5 g/dl (12.0-15.5); MEAN CORPUSCULAR HEMOGLOBIN 29.3 pg (27.0-33.0); MEAN CORPUSCULAR HGB CONC 31.6 g/dl (32.0-36.5); MEAN CORPUSCULAR VOLUME 92.6 fl (80.0-96.0); PLATELET COUNT, AUTOMATED 339 10^3/uL (150-450); RED BLOOD COUNT 3.93 10^6/uL (4.00-5.40); WHITE BLOOD COUNT 4.3 10^3/uL (4.0-10.0)
== END ==
LOC: M SFHCPLAZ 11:44
PROVIDERS: ATTEND Family Medicine
DX: D64.9 Anemia, unspecified (principal); E53.8 Deficiency of other specified B group vitamins

== ENCOUNTER → 2019-08-08 | Outpatient (CLI) | payer MEDICARE, OTHER ==
[2019-08-08 10:17] LABS: HEMATOCRIT 41.4 % (36.0-47.0); HEMOGLOBIN 13.3 g/dl (12.0-15.5); MEAN CORPUSCULAR HEMOGLOBIN 29.7 pg (27.0-33.0); MEAN CORPUSCULAR HGB CONC 32.1 g/dl (32.0-36.5); MEAN CORPUSCULAR VOLUME 92.4 fl (80.0-96.0); PLATELET COUNT, AUTOMATED 219 10^3/uL (150-450); RED BLOOD COUNT 4.48 10^6/uL (4.00-5.40); WHITE BLOOD COUNT 4.2 10^3/uL (4.0-10.0)
[2019-08-08 10:46] LABS: ALBUMIN 3.5 GM/DL (3.2-5.2); ALT/SGPT 13 U/L (12-78); BILIRUBIN,TOTAL 0.4 MG/DL (0.2-1.0); BLOOD UREA NITROGEN 18 MG/DL (7-18); CALCIUM LEVEL 8.8 MG/DL (8.8-10.2); CARBON DIOXIDE LEVEL 31 MEQ/L (21-32); CHLORIDE LEVEL 108 MEQ/L (98-107); CHOLESTEROL LEVEL 185 MG/DL (<200); CHOLESTEROL RISK RATIO 3.189 (<5); FREE T4 1.22 NG/DL (0.76-1.46); GLOMERULAR FILTRATION RATE > 60.0 (>32); GLUCOSE, FASTING 82 MG/DL (70-100); HDL CHOLESTEROL 58 MG/DL (>40); LDL CHOLESTEROL 112 MG/DL (<100); NON-HDL-C 127 MG/DL; POTASSIUM SERUM 4.2 MEQ/L (3.5-5.1); SODIUM LEVEL 144 MEQ/L (136-145); TOTAL PROTEIN 6.5 GM/DL (6.4-8.2); TRIGLYCERIDES LEVEL 77 MG/DL (<150)
== END ==
LOC: M WUC 08:19
PROVIDERS: ATTEND Family Medicine
DX: F41.1 Generalized anxiety disorder (principal); E78.2 Mixed hyperlipidemia; E03.9 Hypothyroidism, unspecified

== ENCOUNTER 2019-09-02 13:18 | Emergency (ER) | payer MEDICARE, OTHER ==
[~2019-09-02] VITALS: Ht 149.9 cm; Wt 48.8 kg
[2019-09-02] MEDS ORDERED: XARE20TA (13:52)
[2019-09-02] MEDS ORDERED: ONDANSETRON 4MG/2ML VIAL (J2405) IV ONE (14:45)
--- NOTE | 2019-09-02 15:09 | REP ---
Clinical: Right lower quadrant pain. Technique: Axial noncontrast images from the lung bases to the pubic symphysis with coronal and sagittal re-formations. Findings: Significant mucosal thickening from the cecum through the descending colon with pericolonic inflammatory stranding and adjacent edematous changes to the mesentery is consistent with an acute infectious/inflammatory pancolitis. Diffuse diverticulosis throughout the entire colon is noted. The small bowel is relatively unremarkable. There is no evidence for obstruction or obvious perforation. No drainable collection/abscess. Liver includes hepatic cyst in the left lobe. Spleen, pancreas, gallbladder, and bilateral adrenal glands and kidneys are relatively normal. 1 mm nonobstructing right renal calculus noted without perinephric stranding or hydronephrosis. Pelvis demonstrates normal bladder and age-appropriate uterus/adnexa. No significant retroperitoneal adenopathy. Atherosclerotic changes of the aorta and vasculature noted. Musculoskeletal structures demonstrate degenerative changes without focal osseous abnormality. Lung bases are clear. Impression: 1. Findings most compatible with infectious/inflammatory colitis extending from the cecum through the descending colon. Ischemic colitis is within differential diagnosis and cannot be excluded. No evidence for obstruction, perforation, or drainable collection/abscess. 2. Extensive, diffuse colonic diverticulosis. Electronically Signed by Jonatan Walker MD 09/02/2019 03:00 P
[2019-09-02 15:14] LABS: BASO % 0.3 % (0.0-1.0); EOS # 0.1 10^3/uL (0.0-0.5); EOS % 0.8 % (0.0-3.0); HEMATOCRIT 42.3 % (36.0-47.0); HEMOGLOBIN 13.4 g/dl (12.0-15.5); LYMPH # 0.4 10^3/uL (1.5-5.0); LYMPH % 3.7 % (24.0-44.0); MEAN CORPUSCULAR HEMOGLOBIN 28.1 pg (27.0-33.0); MEAN CORPUSCULAR HGB CONC 31.7 g/dl (32.0-36.5); MEAN CORPUSCULAR VOLUME 88.7 fl (80.0-96.0); MONO # 0.6 10^3/uL (0.0-0.8); MONO % 6.2 % (0.0-5.0); NEUTROPHILS # 8.5 10^3/uL (1.5-8.5); NEUTROPHILS % 88.7 % (36.0-66.0); PLATELET COUNT, AUTOMATED 325 10^3/uL (150-450); RED BLOOD COUNT 4.77 10^6/uL (4.00-5.40); WHITE BLOOD COUNT 9.6 10^3/uL (4.0-10.0)
[2019-09-02] MEDS: NS 1,000 ML IV SCH ×2 (15:22→15:42)
[2019-09-02] MEDS ORDERED: CIPR-249 PO (15:42)
[2019-09-02] MEDS ORDERED: PYRI1TAB5 PO (15:42)
[2019-09-02] MEDS ORDERED: PHENAZOPYRIDINE 100 MG TAB PO ONE (15:45)
[2019-09-02] MEDS ORDERED: CIPROFLOXACIN 500 MG TAB PO ONE (15:45)
[2019-09-02 15:48] LABS: ALBUMIN 3.2 GM/DL (3.2-5.2); ALT/SGPT 12 U/L (12-78); BILIRUBIN,DIRECT < 0.1 MG/DL (0.0-0.2); BILIRUBIN,TOTAL 0.4 MG/DL (0.2-1.0); BLOOD UREA NITROGEN 11 MG/DL (7-18); CALCIUM LEVEL 9.1 MG/DL (8.8-10.2); CARBON DIOXIDE LEVEL 29 MEQ/L (21-32); CHLORIDE LEVEL 101 MEQ/L (98-107); CREATININE FOR GFR 0.56 MG/DL (0.55-1.30); GLOMERULAR FILTRATION RATE > 60.0 (>32); GLUCOSE, FASTING 94 MG/DL (70-100); LIPASE 73 U/L (73-393); POTASSIUM SERUM 3.1 MEQ/L (3.5-5.1); SODIUM LEVEL 138 MEQ/L (136-145); TOTAL PROTEIN 6.9 GM/DL (6.4-8.2)
[2019-09-02 15:53] VITALS: BP 182/79
== END 2019-09-02 16:02 | disposition home or self-care (01) ==
LOC: M ED 13:18
DX: N39.0 Urinary tract infection, site not specified (principal); K51.90 Ulcerative colitis, unspecified, without complications; K57.30 Diverticulosis of large intestine without perforation or abscess without bleeding; I51.9 Heart disease, unspecified; I10 Essential (primary) hypertension; E78.5 Hyperlipidemia, unspecified; E07.9 Disorder of thyroid, unspecified; Z86.718 Personal history of other venous thrombosis and embolism; Z79.02 Long term (current) use of antithrombotics/antiplatelets; Z79.899 Other long term (current) drug therapy; Z88.2 Allergy status to sulfonamides; Z88.1 Allergy status to other antibiotic agents; Z91.89 Other specified personal risk factors, not elsewhere classified
CPT/HCPCS: 74176; 80048; 80076; 81001; 83690; 85025; 87086; 96361; 96374; 99284; J2405

== ENCOUNTER → 2019-09-07 | Outpatient (REF) | payer MEDICARE, OTHER ==
[~2019-09-07] MED LIST changes: +CIPR-249 PO; +PYRI1TAB5 PO; +XARE20TA
[2019-09-07 12:47] LABS: BLOOD UREA NITROGEN 9 MG/DL (7-18); CALCIUM LEVEL 8.9 MG/DL (8.8-10.2); CARBON DIOXIDE LEVEL 30 MEQ/L (21-32); CHLORIDE LEVEL 105 MEQ/L (98-107); CREATININE FOR GFR 0.64 MG/DL (0.55-1.30); GLOMERULAR FILTRATION RATE > 60.0 (>32); GLUCOSE, FASTING 84 MG/DL (70-100); MAGNESIUM LEVEL 1.9 MG/DL (1.8-2.4); POTASSIUM SERUM 3.3 MEQ/L (3.5-5.1); SODIUM LEVEL 142 MEQ/L (136-145)
== END ==
LOC: M SFHCPLAZ 09:22
PROVIDERS: ATTEND Family Medicine
DX: E87.6 Hypokalemia (principal)
CPT/HCPCS: 36415; 80048; 83735; 96372; G0463; J3420

== ENCOUNTER → 2019-09-18 | Outpatient (POV) | payer MEDICARE, OTHER ==
[~2019-09-18] VITALS: Ht 149.9 cm; Wt 49.1 kg
[2019-09-18 11:15] VITALS: BP 145/81
--- NOTE | 2019-09-19 08:49 | IRCOV ---
[facility] IR Consult Office Visit IR Consult Office Visit DATE: Sep 18, 2019 REASON FOR CONSULTATION/CHIEF COMPLAINT: Right lower quadrant pain. REFERRING PHYSICIAN Dr. 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 Patient presented with right lower quadrant pain at the beginning of August. A CT scan was performed at that time which suggested colitis. Patient was treated with ciprofloxacin. After starting Ciprofloxacin, her pain was relieved after 3 days. Denies fevers or chills at the time. Denies prior bouts of colitis. Reports regular bowel movements with mild constipation. Reports early satiety. Reports weight loss. Last colonoscopy was more than 5 years ago. No recent colonoscopy or upper GI. Patient denies chest pains, angina, shortness of breath, orthopnea or PND. Patient denies intermittent claudication or rest pain in the legs. No hematemesis, melena or bright red blood per rectum. Denies fear of eating or or postprandial pain. Recent diagnosis of extensive left lower extremity DVT which presented with swelling. This has since improved on Xarelto. No further pain or swelling in the left lower extremity. ALLERGIES: Please see below. HOME MEDICATIONS: Please see below. PAST MEDICAL HISTORY: Left lower extremity DVT Hypothyroidism Osteoporosis Hyperlipidemia Degenerative disease COPD Diverticulosis Anxiety PAST SURGICAL HISTORY: Cataract surgery Colonoscopy 2008 and 2013 EGD 2013 FAMILY HISTORY: Noncontributory. SOCIAL HISTORY: Independent with activities of daily living. Denies alcohol, smoking or drugs. REVIEW OF SYSTEMS: Otherwise negative PHYSICAL EXAMINATION: VITAL SIGNS: Please see below. GENERAL APPEARANCE: Appears well. Comfortable at rest. HEENT: No scleral icterus. RESPIRATORY: Normal breathing at rest. CARDIOVASCULAR: Normal rate. ABDOMEN: Nondistended. Soft. No rebound or guarding. Mild tenderness in the right lower quadrant. Normal bowel sounds. EXTREMITIES: No pedal edema. NEUROLOGICAL: Alert and oriented. PSYCHIATRIC: Appropriate to circumstance. LABORATORY DATA: 09/02/2019 hemoglobin 13.4 hematocrit 42.3 WBC 9.6 platelets 325 sodium 142 potassium 3.3 BUN 9 creatinine 0.64 total bilirubin 0.4 AST 22 AL T12 ALP 99 LDH 161 Imaging: I personally reviewed the CT abdomen pelvis without contrast performed on 09/02/2019. There is diffuse colonic wall thickening involving the transverse colon up to the hepatic flexure. Fat stranding indicating inflammation. There is scattered diverticulosis. Old compression fracture at L1. ASSESSMENT/PLAN: 89-year-old female, non-arteriopath presented with acute abdominal pain treated with ciprofloxacin and improved. At the time there was diffuse wall thickening of the colon indicating colitis. Patient does not report any chronic symptoms of mesenteric angina. Given early satiety, weight loss and age, I would recommend patient follow up with gastroenterology for upper and lower GI endoscopy if appropriate. We will refer the patient to gastroenterology. I spent 30 minutes in consultation with the patient. Thank you for this referral. Cc Dr. Nieves CC Lory Harrison Cc Dr. Morin Allergies Coded Allergies: cephalexin (Verified Allergy, Unknown, 09/02/19) Sulfa (Sulfonamide Antibiotics) (Verified Adverse Reaction, Intermediate, severe gi upset, 09/02/19) sulfamethoxazole (Verified Adverse Reaction, Intermediate, severe gi upset, 09/02/19) trimethoprim (Verified Adverse Reaction, Intermediate, severe gi upset, 09/02/19) adhesive (Verified Adverse Reaction, Mild, BANDAIDS-REDNESS OF SKIN, 09/02/19) Home Medications Scheduled Calcium Carbonate/Vitamin D3 (Oyster Shell 500-Vit D3 200 Tb), 1 TAB PO DAILY, (Reported) Ciprofloxacin HCl (Cipro), 500 MG PO BID Cyanocobalamin (Vitamin B-12) (Vitamin B-12), 1,000 MCG PO DAILY Ibandronate Sodium (Boniva), 150 MG PO QMONTH, (Reported) Levothyroxine Sodium (Levothyroxine Sodium), 88 MCG PO DAILY, (Reported) Paroxetine HCl (Paroxetine), 30 MG PO DAILY, (Reported) Phenazopyridine HCl (Pyridium), 200 MG PO Q8H Pravastatin Sodium (Pravastatin Sodium), 80 MG PO DAILY, (Reported) Rivaroxaban (Xarelto), DAILY, (Reported) Scheduled PRN Carboxymethylcellulose Sodium (Refresh Tears), 1 DROP OU QID PRN for DRY EYES, (Reported) VS, I&O, 24H, Fishbone Vital Signs/I&O Vital Signs Date Time Temp Pulse Resp B/P (MAP) Pulse Ox O2 Delivery O2 Flow Rate FiO2 09/18/19 11:15 97.0 81 16 145/81 (102) 99 Room Air SATHISH WARREN MD Sep 19, 2019 08:49
== END ==
LOC: M IRPOV 11:11
PROVIDERS: ATTEND Radiology Diagnostic Radiology
DX: I82.402 Acute embolism and thrombosis of unspecified deep veins of left lower extremity (principal); E03.9 Hypothyroidism, unspecified; M81.0 Age-related osteoporosis without current pathological fracture; E78.5 Hyperlipidemia, unspecified; J44.9 Chronic obstructive pulmonary disease, unspecified; K57.30 Diverticulosis of large intestine without perforation or abscess without bleeding; F41.9 Anxiety disorder, unspecified; Z88.1 Allergy status to other antibiotic agents; Z88.2 Allergy status to sulfonamides; Z88.8 Allergy status to other drugs, medicaments and biological substances; Z91.048 Other nonmedicinal substance allergy status; Z79.899 Other long term (current) drug therapy; Z96.1 Presence of intraocular lens; Z87.311 Personal history of (healed) other pathological fracture

== ENCOUNTER 2019-10-23 19:41 | Emergency (ER) | payer MEDICARE, OTHER ==
[~2019-10-23] VITALS: Ht 149.9 cm; Wt 49.1 kg
[2019-10-23 19:42] VITALS: BP 184/72
[2019-10-23] MEDS ORDERED: KETOCONAZOLE 2% CREAM TOP STA (20:14)
[2019-10-23] MEDS ORDERED: FLUCONAZOLE 50MG TABLET PO ONE (20:15)
[2019-10-23] MEDS ORDERED: KETO2CR TOP (20:21)
--- NOTE | 2019-10-23 21:47 | REPVR ---
PROCEDURE INFORMATION: Exam: US Duplex Right Upper Extremity Veins, Limited Exam date and time: 10/23/2019 9:25 PM Age: 89 years old Clinical indication: Pain; Arm, upper; Right; Additional info: R wrist/forearm swelling, upper arm tender, no cory TECHNIQUE: Imaging protocol: Real-time Duplex ultrasound of the Right Upper Extremity with 2-D zavala scale, color Doppler flow and spectral waveform analysis with image documentation. Limited exam focused on the right upper extremity veins. COMPARISON: No relevant prior studies available. FINDINGS: Right deep veins: Unremarkable. Axillary and brachial veins are patent throughout without thrombus. Normal Doppler waveforms. Normal compressibility and/or augmentation response. Visualized internal jugular and subclavian veins are patent. Right superficial veins: Unremarkable. Visualized cephalic and basilic veins are patent without thrombus. Soft tissues: Unremarkable. IMPRESSION: No sonographic evidence of deep vein thrombosis. Electronically signed by: Jeffry Simental On 10/23/2019 21:46:20 PM
== END 2019-10-23 22:13 | disposition home or self-care (01) ==
LOC: M ED 19:41
DX: B35.0 Tinea barbae and tinea capitis (principal); R22.31 Localized swelling, mass and lump, right upper limb; E78.5 Hyperlipidemia, unspecified; E03.9 Hypothyroidism, unspecified; Z86.718 Personal history of other venous thrombosis and embolism; Z79.01 Long term (current) use of anticoagulants; Z79.899 Other long term (current) drug therapy; Z91.89 Other specified personal risk factors, not elsewhere classified; Z88.0 Allergy status to penicillin; Z88.8 Allergy status to other drugs, medicaments and biological substances; Z88.1 Allergy status to other antibiotic agents

== ENCOUNTER → 2019-11-01 | Outpatient (REF) | payer MEDICARE, OTHER ==
[~2019-11-01] MED LIST changes: +KETO2CR TOP
[2019-11-01 12:10] LABS: VITAMIN B12 LEVEL > 2000 PG/ML
[2019-11-01 12:11] LABS: FOLATE 14.7 NG/ML
== END ==
LOC: M SFHCPLAZ 09:49
PROVIDERS: ATTEND Physician Assistant
DX: E53.8 Deficiency of other specified B group vitamins (principal); M25.512 Pain in left shoulder; M25.511 Pain in right shoulder
CPT/HCPCS: 36415; 82607; 82746; 85652; 86140; 96372; G0463; J3420

== ENCOUNTER 2019-11-26 09:26 | Outpatient (RCR) | payer MEDICARE, OTHER | END 2019-11-30 | LOC: M PT 09:26 | PROVIDERS: ATTEND Physician Assistant | DX: R53.81 Other malaise (principal) ==

== ENCOUNTER → 2020-01-03 | Outpatient (CLI) | payer MEDICARE, OTHER ==
[2020-01-05 00:07] LABS: ANA (HEP2) Positive (.); ANTI JO-1 ANTIBODIES <0.2 AI (0.0-0.9)
== END ==
LOC: M LAB 10:17
PROVIDERS: ATTEND Dermatology
DX: R21 Rash and other nonspecific skin eruption (principal)

== ENCOUNTER → 2020-01-03 | Outpatient (REF) | payer MEDICARE, OTHER | LOC: M LAB REF 09:35 | PROVIDERS: ATTEND Dermatology | DX: L85.9 Epidermal thickening, unspecified (principal); R21 Rash and other nonspecific skin eruption ==

== ENCOUNTER → 2020-04-18 | Outpatient (CLI) | payer MEDICARE, OTHER ==
[2020-04-18 14:03] LABS: HEMATOCRIT 40.5 % (36.0-47.0); HEMOGLOBIN 12.8 g/dl (12.0-15.5); MEAN CORPUSCULAR HEMOGLOBIN 28.7 pg (27.0-33.0); MEAN CORPUSCULAR HGB CONC 31.6 g/dl (32.0-36.5); MEAN CORPUSCULAR VOLUME 90.8 fl (80.0-96.0); PLATELET COUNT, AUTOMATED 199 10^3/uL (150-450); RED BLOOD COUNT 4.46 10^6/uL (4.00-5.40); WHITE BLOOD COUNT 4.1 10^3/uL (4.0-10.0)
[2020-04-18 14:43] LABS: ALBUMIN 3.4 GM/DL (3.2-5.2); ALT/SGPT 19 U/L (12-78); BILIRUBIN,TOTAL 0.4 MG/DL (0.2-1.0); BLOOD UREA NITROGEN 20 MG/DL (7-18); CALCIUM LEVEL 8.4 MG/DL (8.8-10.2); CARBON DIOXIDE LEVEL 30 MEQ/L (21-32); CHLORIDE LEVEL 109 MEQ/L (98-107); FREE T4 1.42 NG/DL (0.76-1.46); GLOMERULAR FILTRATION RATE > 60.0 (>32); GLUCOSE, FASTING 84 MG/DL (70-100); POTASSIUM SERUM 4.1 MEQ/L (3.5-5.1); SODIUM LEVEL 145 MEQ/L (136-145); THYROID STIMULATING HORMONE 0.255 uIU/ML (0.358-3.740); TOTAL PROTEIN 6.1 GM/DL (6.4-8.2)
== END ==
LOC: M WUC 11:56
PROVIDERS: ATTEND Family Medicine
DX: I82.512 Chronic embolism and thrombosis of left femoral vein (principal); M35.9 Systemic involvement of connective tissue, unspecified; E03.9 Hypothyroidism, unspecified

== ENCOUNTER → 2020-06-06 | Outpatient (REF) | payer MEDICARE, OTHER ==
[2020-07-21 08:23] LABS: C REACTIVE PROTEIN QUANTITATIV < 0.30 MG/DL (0.00-0.30); CPK CREATINE PHOSPHOKINASE 61 U/L (26-192)
== END ==
LOC: M LABWUC 15:56 → M SFHCRHEU 15:56
PROVIDERS: ATTEND Internal Medicine Rheumatology
DX: M33.00 Juvenile dermatomyositis, organ involvement unspecified (principal)
CPT/HCPCS: 36415; 82085; 82550; 85652; 86140; G0463

== ENCOUNTER → 2020-06-17 | Outpatient (REF) | payer MEDICARE, OTHER ==
[2020-08-26 14:20] LABS: C REACTIVE PROTEIN QUANTITATIV < 0.30 MG/DL (0.00-0.30); CPK CREATINE PHOSPHOKINASE 43 U/L (26-192)
== END ==
LOC: M SFHCRHEU 12:25
PROVIDERS: ATTEND Internal Medicine Rheumatology
DX: M33.90 Dermatopolymyositis, unspecified, organ involvement unspecified (principal)

== ENCOUNTER → 2020-12-04 | Outpatient (CLI) | payer MEDICARE, OTHER ==
--- NOTE | 2020-12-04 10:20 | REP ---
INDICATION: LEFT LEG SWELLING AND PAIN,PERSONAL HISTORY OF COM. COMPARISON: Comparison left lower extremity sonography June 17, 2019.. TECHNIQUE: Left lower extremity duplex venous sonography. FINDINGS: Study is positive for extensive occlusive deep venous thrombosis involving the left lower extremity from the common femoral vein segment distally into the proximal calf vein segments. These veins are somewhat distended and show non-compressibility and absence of Doppler flow.. IMPRESSION: Positive exam for extensive occlusive deep vein thrombosis throughout the left lower extremity deep venous system.. <Electronically signed by Theron Ramires > 12/04/20 [id number]
[2020-12-04 11:08] LABS: BASO # 0.1 10^3/uL (0.0-0.2); BASO % 1.1 % (0.0-1.0); EOS # 0.2 10^3/uL (0.0-0.5); EOS % 4.8 % (0.0-3.0); HEMATOCRIT 38.9 % (36.0-47.0); LYMPH # 0.3 10^3/uL (1.5-5.0); LYMPH % 7.2 % (24.0-44.0); MEAN CORPUSCULAR HEMOGLOBIN 28.1 pg (27.0-33.0); MEAN CORPUSCULAR HGB CONC 30.8 g/dl (32.0-36.5); MEAN CORPUSCULAR VOLUME 91.1 fl (80.0-96.0); MONO # 0.4 10^3/uL (0.0-0.8); MONO % 8.5 % (0.0-5.0); NEUTROPHILS # 3.6 10^3/uL (1.5-8.5); PLATELET COUNT, AUTOMATED 259 10^3/uL (150-450); RED BLOOD COUNT 4.27 10^6/uL (4.00-5.40); WHITE BLOOD COUNT 4.6 10^3/uL (4.0-10.0)
[2020-12-04 12:10] LABS: ALBUMIN 3.4 GM/DL (3.2-5.2); ALT/SGPT 15 U/L (12-78); BILIRUBIN,TOTAL 0.3 MG/DL (0.2-1.0); BLOOD UREA NITROGEN 23 MG/DL (7-18); CALCIUM LEVEL 9.3 MG/DL (8.8-10.2); CARBON DIOXIDE LEVEL 30 MEQ/L (21-32); CHLORIDE LEVEL 108 MEQ/L (98-107); CREATININE FOR GFR 0.57 MG/DL (0.55-1.30); GLOMERULAR FILTRATION RATE > 60.0 (>32); GLUCOSE, FASTING 89 MG/DL (70-100); POTASSIUM SERUM 5.2 MEQ/L (3.5-5.1); SODIUM LEVEL 142 MEQ/L (136-145); TOTAL PROTEIN 6.4 GM/DL (6.4-8.2)
== END ==
LOC: M LAB 09:45
PROVIDERS: ATTEND Physician Assistant
DX: I82.402 Acute embolism and thrombosis of unspecified deep veins of left lower extremity (principal); M79.89 Other specified soft tissue disorders; Z87.59 Personal history of other complications of pregnancy, childbirth and the puerperium; Z86.718 Personal history of other venous thrombosis and embolism
CPT/HCPCS: 36415; 80053; 85025; 93971; G0463

== ENCOUNTER → 2021-03-10 | Outpatient (REF) | payer OTHER ==
[2021-03-10 10:29] LABS: HEMATOCRIT 44.3 % (36.0-47.0); HEMOGLOBIN 13.5 g/dl (12.0-15.5); MEAN CORPUSCULAR HEMOGLOBIN 27.5 pg (27.0-33.0); MEAN CORPUSCULAR HGB CONC 30.5 g/dl (32.0-36.5); MEAN CORPUSCULAR VOLUME 90.2 fl (80.0-96.0); PLATELET COUNT, AUTOMATED 201 10^3/uL (150-450); RED BLOOD COUNT 4.91 10^6/uL (4.00-5.40); WHITE BLOOD COUNT 4.5 10^3/uL (4.0-10.0)
[2021-03-10 10:35] LABS: BLOOD UREA NITROGEN 16 MG/DL (7-18); CALCIUM LEVEL 9.5 MG/DL (8.8-10.2); CARBON DIOXIDE LEVEL 34 MEQ/L (21-32); CHLORIDE LEVEL 109 MEQ/L (98-107); CREATININE FOR GFR 0.53 MG/DL (0.55-1.30); GLOMERULAR FILTRATION RATE > 60.0 (>32); GLUCOSE, FASTING 92 MG/DL (70-100); POTASSIUM SERUM 5.4 MEQ/L (3.5-5.1); SODIUM LEVEL 142 MEQ/L (136-145)
[2021-03-10 10:42] LABS: ALBUMIN 3.8 GM/DL (3.2-5.2); ALT/SGPT 13 U/L (12-78); BILIRUBIN,TOTAL 0.5 MG/DL (0.2-1.0); BLOOD UREA NITROGEN 15 MG/DL (7-18); CARBON DIOXIDE LEVEL 33 MEQ/L (21-32); CHLORIDE LEVEL 110 MEQ/L (98-107); CHOLESTEROL LEVEL 218 MG/DL (<200); CHOLESTEROL RISK RATIO 2.691 (<5); CREATININE FOR GFR 0.54 MG/DL (0.55-1.30); GLOMERULAR FILTRATION RATE > 60.0 (>32); GLUCOSE, FASTING 88 MG/DL (70-100); HDL CHOLESTEROL 81 MG/DL (>40); LDL CHOLESTEROL 114 MG/DL (<100); NON-HDL-C 137 MG/DL; POTASSIUM SERUM 5.1 MEQ/L (3.5-5.1); SODIUM LEVEL 143 MEQ/L (136-145); TOTAL PROTEIN 6.6 GM/DL (6.4-8.2); TRIGLYCERIDES LEVEL 115 MG/DL (<150)
[2021-03-10 10:46] LABS: VITAMIN B12 LEVEL > 2000 PG/ML (247-911)
== END ==
LOC: M PLALAB 08:07
PROVIDERS: ATTEND Family Medicine
DX: E53.8 Deficiency of other specified B group vitamins (principal); R41.3 Other amnesia; E78.2 Mixed hyperlipidemia; E03.9 Hypothyroidism, unspecified

== ENCOUNTER → 2021-03-20 | Outpatient (CLI) | payer OTHER ==
--- NOTE | 2021-03-20 10:06 | REP ---
INDICATION: GERMAIN COMPARISON: 02/07/2013 TECHNIQUE: PA and lateral. FINDINGS: The mediastinum and cardiac silhouette are normal. Diffuse chronic changes suggesting COPD/emphysematous disease. No effusion. No pneumothorax. No acute consolidation. Old rib fractures along with osteopenia and suspected chronic compression deformity of midthoracic vertebral body. IMPRESSION: Chronic appearing changes as described above. <Electronically signed by Jonatan Walker > 03/20/21 1002
== END ==
LOC: M ADAMS 09:11
PROVIDERS: ATTEND Family Medicine
DX: M85.88 Other specified disorders of bone density and structure, other site (principal); R06.00 Dyspnea, unspecified

== ENCOUNTER → 2021-04-03 | Outpatient (CLI) | payer OTHER ==
--- NOTE | 2021-04-03 11:32 | DEXAMM ---
INDICATION: M[age] AGE REL OSTEOPOROSIS W/O FX. COMPARISON: 03/10/2016 as well as other prior exams. TECHNIQUE: Bone density was measured using dual-energy x-ray absorptiometry (DEXA). FINDINGS: AP SPINE L1-L4 BMD 1.120 g/cm2 Young Adult T-Score -0.6 Age Matched Z-Score 1.4. LT FEMUR, TOTAL BMD 0.719 g/cm2 Young Adult T-Score -2.3 Age Matched Z-Score 0.2. LT NECK BMD 0.773 g/cm2 Young Adult T-Score -1.9 Age Matched Z-Score 0.7. RT FEMUR, TOTAL BMD 0.714 g/cm2 Young Adult T-Score -2.3 Age Matched Z-Score 0.2. RT NECK BMD 0.718 g/cm2 Young Adult T-Score -2.3 Age Matched Z-Score 0.3. IMPRESSION: There is normal bone density of the spine. There is low bone density of the left hip. There is low bone density of the right hip. The density of the spine has increased 42.7% since the initial exam on 08/10/2000. The density of the spine decreased 4.8% since most recent exam on 03/10/2016. The density of the left hip has increased 0.4% since initial exam on 08/10/2000. The density of the left hip has decreased 5.4% since most recent exam on 03/10/2016. The density of the right hip has decreased 1.2% since the initial exam on 08/10/2000. The density of the right hip has decreased 5.6% since the most recent exam on 03/10/2016. FOLLOW-UP: Recommendation for the next bone density exam: 2 years. <Electronically signed by Charles Coleman > 04/03/21 112
== END ==
LOC: M WHC 10:24
PROVIDERS: ATTEND Family Medicine
DX: M81.0 Age-related osteoporosis without current pathological fracture (principal); M85.851 Other specified disorders of bone density and structure, right thigh; M85.852 Other specified disorders of bone density and structure, left thigh